=== PATIENT | male | born 1935 | race Caucasian/White ===

== ENCOUNTER 2018-07-28 18:58 | Inpatient (IN) | payer OTHER ==
[~2018-07-28] VITALS: Ht 182.9 cm; Wt 79.4 kg
--- NOTE | 2018-07-28 19:10 | NUR ---
Patient to ER bed 1 to gown for evaluation. Side rails up. Report given to Yves FRANCISCO.
[2018-07-28 19:14] VITALS: BP_SYST 113
--- NOTE | 2018-07-28 19:15 | NUR ---
Patient brought to ED via BLS from [facility]. Patient suffered CVA x 18 days ago. Recent onset of dysphagia x 5 days. Per family, patient has not been tolerating recent PO intake and is losing weight. Patient referred to ED by Dr. Red for medical evaluation and G-tube placement. S/P stroke patient has right sided hemiplegia and expressive aphagia. -CP -SOB -N/V/D. Family at bedside.
[2018-07-28 19:48] LABS: MEAN CORPUSCULAR VOLUME 89 fL (79.0-98.0)
[2018-07-28 19:51] LABS: BASOPHILS % (AUTO) 0.2 % (0.0-2.0); EOSINOPHILS % (AUTO) 0.8 % (0.0-4.0); HEMATOCRIT 39.5 % (36-54); LYMPHOCYTES # (AUTO) 1.1 K/uL (1.0-5.5); MEAN CORPUSCULAR HEMOGLOBIN 29 pg (27-31); MEAN CORPUSCULAR HGB CONC 33 % (32-36); MONOCYTES # (AUTO) 0.6 K/uL (0.0-1.0); MONOCYTES % (AUTO) 9.7 % (1.7-9.3); NEUTROPHILS # (AUTO) 4.4 K/uL (1.8-7.7); NEUTROPHILS % (AUTO) 71.3 % (40.0-70.0); PLATELET COUNT (AUTO) 342 K/uL (130-430); RED BLOOD CELL COUNT(AUTO) 4.45 MIL/uL (4.2-6.2); WHITE BLOOD COUNT (AUTO) 6.1 K/uL (4.8-10.8)
[2018-07-28 19:56] LABS: ANION GAP 11 (5-15); CALCIUM 8.6 mg/dL (8.4-11.0); CHLORIDE 107 mmol/L (98-107); CREATININE 1.42 mg/dL (0.55-1.30); GLUCOSE 114 mg/dL (70-99); POTASSIUM 3.7 mmol/L (3.5-5.1); SODIUM SERUM 141 mmol/L (136-145); UREA NITROGEN, BLOOD 22 mg/dL (8-21)
[2018-07-28] MEDS ORDERED: LIP40 GT (19:57)
[2018-07-28] MEDS ORDERED: BET(AF)80 GT (19:57)
[2018-07-28] MEDS ORDERED: LEVE500T9 GT (19:57)
[2018-07-28] MEDS ORDERED: MELA3TAB PO (19:57)
[2018-07-28] MEDS ORDERED: TAMS-11 GT (19:57)
[2018-07-28] MEDS ORDERED: MERCAP50 GT (19:57)
[2018-07-28] MEDS ORDERED: METO25TA6 GT (19:57)
[2018-07-28] MEDS ORDERED: [UNRECOGNIZED DRUG - CODE] GT (19:57)
[2018-07-28] MEDS ORDERED: HYT1 GT (19:57)
[2018-07-28] MEDS ORDERED: APIX5TAB4 GT (19:57)
[2018-07-28] MEDS ORDERED: PRO40 GT (19:57)
[2018-07-28] MEDS ORDERED: CIPR5DRO LEFT EAR (19:57)
[2018-07-28] MEDS ORDERED: ASPI-1153 GT (19:57)
[2018-07-28] MEDS ORDERED: DRON10CA GT (19:57)
[2018-07-28 20:00] LABS: INR 1.2 (0.80-1.20)
[2018-07-28] MEDS ORDERED: KCL 10 mEq in D5/0.45NS 1000mL 1,000 ML IV ONE (20:00)
[2018-07-28 20:01] LABS: ALANINE AMINOTRANSFERASE 57 U/L (12-78); ALBUMIN 2.3 g/dL (3.4-4.8); ASPARTATE AMINOTRANSFERASE 30 U/L (10-37); TOTAL BILIRUBIN 0.8 mg/dL (0.0-1.0)
[2018-07-28 20:21] LABS: BILIRUBIN,URINE NEGATIVE (NEGATIVE); BLOOD, URINE 2+ (NEGATIVE); CLARITY/URINE CLEAR (CLEAR); COLOR,URINE YELLOW (YELLOW); GLUCOSE,URINE NEGATIVE (NEGATIVE); KETONES,URINE 1+ (NEGATIVE); LEUKOCYTE ESTERASE ,URINE TRACE (NEGATIVE); NITRITE, URINE POSITIVE (NEGATIVE); PH,URINE 5.5 (5.0-8.0); PROTEIN URINE 1+ (NEGATIVE); UROBILINOGEN,URINE 0.2 (0.2-1.0)
[2018-07-28 20:25] LABS: BACTERIA,URINE MODERATE /HPF (None Seen); RBC,URINE 0-3 /HPF (0-3); WBC,URINE 20-50 /HPF (0-3)
--- NOTE | 2018-07-28 20:27 | NUR ---
Medication was given. Pt tolerated well. No adverse reaction, will continue to monitor.
--- NOTE | 2018-07-28 21:11 | NUR ---
Pt went to radiology in stable condition.
--- NOTE | 2018-07-28 21:31 | NUR ---
Pt returned from radiology in stable condition.
--- NOTE | 2018-07-28 21:35 | NUR ---
Jamir Jennings at bedside explaining results to patient.
[2018-07-28] MEDS ORDERED: cefTRIAXone 1 GM IVPB PREMIX 50 ML IV ONE (22:30)
[2018-07-28] MEDS ORDERED: AZITHROMYCIN 500 MG in NS 250 ML IV ONE (22:30)
[2018-07-28] MEDS ORDERED: AZITHROMYCIN 500 MG/VIAL (ZITHROMAX) IV ONE (22:39)
--- NOTE | 2018-07-28 22:45 | NUR ---
Medication was given, pt tolerated well. No adverse reaction, will continue to monitor.
[2018-07-28 23:00] VITALS: BP_SYST 110
[2018-07-28] MEDS: D5NS 1,000 ML IV SCH (23:00)
--- NOTE | 2018-07-28 23:00 | NUR ---
ADMISSION NOTE Received patient from ER via gurney. Patient admitted with diagnosis of UTI,PNA. Patient is awake, alert, oriented X 2. Patient oriented to hospital room, call light, toileting, pain management and safety-teach back done. Patient informed that austen will be his nurse and that their room number is 103a. Personal belongings checked and Belongings List documented. Call light within reach.
--- NOTE | 2018-07-28 23:00 | NUR ---
Patient will be admitted to care of Dr. Bustamante. Admitted to Med Surg unit. Will go to room 103 A. Belongings list completed. Summary report printed. Report will be given at bedside.
--- NOTE | 2018-07-28 23:55 | NUR ---
ADMISSION PHYSICAL ASSESSMENT NOTES; pt. checked, very sleepy but arousable with at bedside. alert, knows his name but disoriented to place and time, at bedside. pt. 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 IV via rt. antecubital with D5 1/2 NS @ 75 cc/hr. kept warm and dry. pt. diagnosis of PNA/UTI. On IV Zithromax started from ER. call light within reach, bed alarm, fall precautions observed.
[2018-07-29] VITALS: BP_SYST 110
--- NOTE | 2018-07-29 00:07 | NUR ---
NOTES: report given by nurse Colon.
--- NOTE | 2018-07-29 01:00 | NUR ---
CONSULT CONSULT CALLED FOR DR. VENTURA I SPOKE WITH LALITHA ENCISO REASON FOR CONSULT: POSSIBLE G-TUBE PLACEMENT REQUESTING CONSULT: DR. HIGH NUMBER I CALLED: [phone]
--- NOTE | 2018-07-29 01:58 | NUR ---
NOTES: pt. awakened and wanting to get out of bed, had a soft bowel movement, benito care done and kept dry, able to help turn to side. at bedside. maintained bed rest.
--- NOTE | 2018-07-29 04:22 | NUR ---
NOTES: pt. been sleeping when made rounds. pt. needs attended.
--- NOTE | 2018-07-29 04:35 | NUR ---
Swallow Eval called for Joanie (speech therapist), dialed . left a message on her voicemail regarding Pt's swallow eval..
--- NOTE | 2018-07-29 06:18 | NUR ---
NOTES: pt. been sleeping but when awakened, starts yelling and tries to get out of bed, gets restless, pt. reassured. speech remains garbled/slurred, drank some water with 's help, HOB elevated. pt. left to go home and will be back later. bed alarm on and close to station. IVF patent, wrapped IV site with kerlix.
--- NOTE | 2018-07-29 06:45 | NUR ---
CLOSING NOTES; pt. more calm, fall precautions observed, bed alarm on, side rails up, seizure pads on, seizure precautions. IVF patent. needs further care and observation. frequent rounds.
--- NOTE | 2018-07-29 07:15 | NUR ---
report given to incoming shift with nurse Catrachita, Dr. Azul here and telling us his plan, asked Catrachita to inform about the plan and let Dr. Azul.
--- NOTE | 2018-07-29 07:58 | NUR ---
opening note pt laying in bed, resting. denies any cp/ sob.no distress noted. call light placed within reach. bed alarm in place with bed in the lowest position. safety maintained.
[2018-07-29 08:00] VITALS: BP_SYST 112
[2018-07-29] MEDS ORDERED: SOTALOL (AF) 80 MG TABLET PO ONE (09:00)
[2018-07-29] MEDS: MESALAMINE 400 MG CAPSULE.DR PO SCH ×3 (10:23→20:09)
[2018-07-29] MEDS: METOPROLOL TARTRATE 25 MG TABLET PO SCH ×2 (10:25→20:08)
[2018-07-29] MEDS: PANTOPRAZOLE SODIUM 40 MG TAB PO SCH (10:26)
--- NOTE | 2018-07-29 10:36 | NUR ---
am meds morning meds given. pt refused taking all medications crushed in apple sauce, became upset, will reattempt. at bedside, safety maintained.
[2018-07-29] MEDS ORDERED: levETIRAcetam 500 MG TABLET PO SCH (11:00)
[2018-07-29] MEDS ORDERED: TAMSULOSIN HCL 0.4 MG CAP PO SCH (11:00)
[2018-07-29] MEDS ORDERED: TERAZOSIN HCL 1 MG CAPSULE (HYTRIN) PO ONE (11:00)
--- NOTE | 2018-07-29 12:00 | NUR ---
PATIENT RESTING: Patient resting quietly. No acute distress noted. Vital signs within normal range.
[2018-07-29 12:06] VITALS: BP_SYST 104
[2018-07-29] MEDS: D5NS 1,000 ML IV SCH (13:27)
[2018-07-29] MEDS ORDERED: levETIRAcetam 500 MG TABLET PO ONE (13:30)
--- NOTE | 2018-07-29 13:30 | NUR ---
PATIENT REFUSING MEDICATION AT THIS TIME.
--- NOTE | 2018-07-29 14:42 | NUR ---
GONZALO SCALE EVALUATION: Patient evaluated for a low Gonzalo score of 13. Patient was awake, alert, oriented, and received in a Karla bed with an IsoFlex LUZ mattress. Patient is able to turn in bed (patient was refusing skin assessment, but his son assisted him to turn for assessment). Skin is fair (+); Buttocks have blanchable erythema from IAD. Recommend reposition patient side to side only every 2 hours with pillow support and off-load pressure areas with pillows for pressure re-distribution. Elevate, off-load and float bilateral heels with pillows. Use moisture barrier cream on buttocks and other moisture susceptible areas QID and as needed for soiling. Perform skin care and monitor skin integrity Q shift. Place patient on a low air-loss mattress.
--- NOTE | 2018-07-29 15:12 | NUR ---
PATIENT REFUSING ALL MEDICATIONS . SAFETY MAINTAINED
--- NOTE | 2018-07-29 15:49 | NUR ---
S.T. SWALLOW EVAL COMPLETED. SON PRESENT. PT PRESENTS W/ ML-MOD ORAL DYSPHAGIA W/ PROLONGED MASTICATION. NO S/S OF ASPIRATION. REC: MECH SOFT FINELY CHOPPED DIET. THIN LIQUIDS OK. MONITOR FOR ADEQUATE INTAKE. SON IN AGREEMENT W/ RESULTS AND RECOMMENDATIONS. NURSE JAMMIE NOTIFIED. [id number] CJ G8997 CJ G8998 NOMS LEVEL 5
[2018-07-29 16:06] VITALS: BP_SYST 102
--- NOTE | 2018-07-29 17:00 | NUR ---
PATIENT RESTING: Patient resting quietly. No acute distress noted. Vital signs within normal range.
[2018-07-29] MEDS: LORazepam 2 MG/ML VIAL IVP PRN ×2 (18:51→19:50)
--- NOTE | 2018-07-29 19:30 | NUR ---
ROUNDS PATIENT IN BED, AWAKE ALERT, CONFUSED, NOT IN DISTRESS, VITALS STABLE. NO SIGNS OF ANY PAIN AND DISCOMFORT NOTED. ASSESSMENT DONE AND DOCUMENTED. SEE FLOWSHEET. NEEDS ATTENDED TO. SAFETY AND FALL PRECAUTION MEASURES IN PLACED. BED IN LOW AND LOCKED POSITION. BED ALARM ON. CALL LIGHT PLACED WITHIN REACH.
--- NOTE | 2018-07-29 19:31 | NUR ---
CLOSING NOTE ALL NEEDS MET THROUGH SHIFT. SAFETY MAINTAINED, CARE ENDORSED TO ROAD MACHINE OPERATOR.
[2018-07-29 19:55] VITALS: BP_SYST 115
[2018-07-29] MEDS: cefTRIAXone 1 GM in D5W 50 ML IV SCH (20:07)
[2018-07-29] MEDS: levETIRAcetam 500 MG TABLET PO SCH (20:08)
[2018-07-29] MEDS: TAMSULOSIN HCL 0.4 MG CAP PO SCH (20:08)
[2018-07-29] MEDS: ATORVASTATIN 20 MG TABLET PO SCH (20:09)
--- NOTE | 2018-07-29 20:22 | NUR ---
PATIENT CONTINUE AGITATED AND CONFUSE TRIED TO GET OUT OFF BED SINCE 1800 THE SON JUST ARRIVED TO VISIT AND HE IS TRIED TO CALM HIM DOWN RN INCHARGED TO THE PATIENT AT THE BED SIDE TO GIVE MEDICATION TO THE PATIENT AND ANSWER SOME QUESTIONS FROM THE SON
--- NOTE | 2018-07-29 20:35 | NUR ---
MEDICATION DUE PO MEDICATIONS GIVEN CRUSHED WITH APPLESAUCE, TOLERATED WELL. WILL CONTINUE TO MONITOR.
[2018-07-29] MEDS: MELATONIN 3 MG PO SCH (21:00)
--- NOTE | 2018-07-29 21:00 | NUR ---
PATIENT FELL ASLEEP AND THE PATIENT SON LEFT TO GO HOMe
[2018-07-29] MEDS: AZITHROMYCIN 500 MG in NS 250 ML IV SCH (21:20)
--- NOTE | 2018-07-30 00:06 | NUR ---
PATIENT RESTING: Patient resting quietly. No acute distress noted. Vital signs within normal range.
[2018-07-30 01:07] VITALS: BP_SYST 110
[2018-07-30] MEDS: LORazepam 2 MG/ML VIAL IVP PRN (02:18)
--- NOTE | 2018-07-30 02:18 | NUR ---
NOTES PATIENT AGITATED AT THIS TIME, ATIVAN 0.5 MG IV GIVEN ORDERED PRN. WILL CONTINUE TO MONITOR.
--- NOTE | 2018-07-30 04:01 | NUR ---
PATIENT RESTING: Patient resting quietly. No acute distress noted. Vital signs within normal range.
[2018-07-30] MEDS: D5NS 1,000 ML IV SCH ×2 (05:49→15:00)
--- NOTE | 2018-07-30 06:42 | NUR ---
CLOSING NOTES PATIENT ASLEEP, VITALS STABLE, NO SIGNS OF AY PAIN AND DISCOMFORT NOTED. ALL NEEDS ATTENDED TO. SAFETY AND FALL PRECAUTION MEASURES MAINTAINED. CALL LIGHT PLACED WITHIN REACH.
--- NOTE | 2018-07-30 07:30 | NUR ---
AM rounds patient resting in bed, a/ox1, denies pain, re-oriented to place, time and event, assessment complete, IV line patent and infusing well, wrapped with george wrap at this time, unable to educate the patient on plan of care and call light system, patient bed in lowest position, three side rails up, bed alarm on, bed close to nursing station, fall and aspiration precautions in place, continuing to monitor.
[2018-07-30 08:33] VITALS: BP_SYST 109
[2018-07-30] MEDS: PANTOPRAZOLE SODIUM 40 MG TAB PO SCH ×3 (09:00→10:04)
[2018-07-30] MEDS: TERAZOSIN HCL 1 MG CAPSULE (HYTRIN) PO SCH ×3 (09:00→10:04)
[2018-07-30] MEDS: levETIRAcetam 500 MG TABLET PO SCH ×4 (09:00→21:00)
[2018-07-30] MEDS: MESALAMINE 400 MG CAPSULE.DR PO SCH ×5 (09:00→21:00)
[2018-07-30] MEDS: SOTALOL 80 MG PO SCH ×2 (09:00→09:25)
[2018-07-30] MEDS ORDERED: SOTALOL (AF) 80 MG TABLET PO SCH (09:00)
[2018-07-30] MEDS: METOPROLOL TARTRATE 25 MG TABLET PO SCH ×4 (09:00→21:00)
--- NOTE | 2018-07-30 09:49 | NUR ---
Nutrition Update Gonzalo Scale 15 noted. Pt admitted for pneumonia and UTI. Diet: mechanical soft BMI: 23.7 kg/m2 RD to follow per nutrition care standards.
--- NOTE | 2018-07-30 10:12 | NUR ---
Medications patient resting in bed, initially medications were scanned and crushed but patient spit medication out, medications were wasted and pulled again, second time, patient was too lethargic too take medications, medications were scanned and placed in patient medication drawer, patient family member aware that medications were not yet given, continuing to monitor the patient, family also request Ativan to not be given to the patient.
--- NOTE | 2018-07-30 11:11 | NUR ---
FOLLOW UP Person Who was Notified: SPOKE WITH DION FROM DR. HOFFMAN OFFICE Consulting Physician: Expediter Specialty: PSYCH Ordering Physician: Addendum: 07/30/18 at 1115 by Mariposa Zhu CNA CONSULT
[2018-07-30 11:47] VITALS: BP_SYST 111
--- NOTE | 2018-07-30 12:02 | NUR ---
RN rounds/medication patient resting in bed, eyes closed, breathing is even and unlabored, no signs of distress, easy to wake but patient returns to sleeping quickly, family at bedside, family insisting to try to give the patient AM medications with lunch, will attempt, no other needs at this time, bed in lowest position, three side rails up, bed alarm on, bed close to nursing station, fall and aspiration precautions in place.
--- NOTE | 2018-07-30 12:30 | NUR ---
Cannot give medication patient is very lethargic and unable to take medications, will inform MD.
--- NOTE | 2018-07-30 14:15 | NUR ---
Dr. Kapadia rounds speaking with family at bedside.
--- NOTE | 2018-07-30 14:35 | NUR ---
Dr. Azul rounds speaking with family at bedside.
--- NOTE | 2018-07-30 15:30 | NUR ---
Dietitian Recommendations * Recommend mechanical soft diet, Ensure Enlive BID (oral supplement provides an additional 700 kcal/day and 40 gm protein/day) LP, RD Please refer to Nutrition Assessment for details.
[2018-07-30 16:04] VITALS: BP_SYST 113
--- NOTE | 2018-07-30 16:22 | NUR ---
RN rounds family at bedside, answered their questions, family requesting no Ativan and for sleeping pill instead, patient resting in bed, eyes closed, breathing is even and unlabored, no signs of distress, continuing to monitor, IV line is patent and infusing well, no other needs at this time, bed in lowest position, three side rails up, bed alarm on, bed close to nursing station, fall and aspiration precautions in place.
--- NOTE | 2018-07-30 18:24 | NUR ---
Closing note Patient resting in bed, eyes closed, breathing is even and unlabored, no signs of distress, family at bedside, all needs met, will endorse report to NOC shift nurse, bed in lowest position, three side rails up, bed alarm on, bed close to nursing station, fall and aspiration precautions in place, IV line is patent and infusing well. Spoke with Dr. Kapadia, stated to DC Ativan and he will not order a sleeping pill as it will have the same effect as the Ativan.
[2018-07-30 19:15] VITALS: BP_SYST 104
--- NOTE | 2018-07-30 19:20 | NUR ---
Opening Note Bedside SBAR report received from Randal you RN Patient is resting, eyes closed with his daughter bedside. 104/68 84 15 97.9 97% (room air) with no signs of pain/discomfort at this time. IV site noted to RH 22G currently infusing D51/2NS @ 75ml/hr. No signs of redness or infiltration. Bed to lowest position, 3 side rails raised, call light within reach, bed alarm activated. Will continue to monitor patient.
[2018-07-30] MEDS: TAMSULOSIN HCL 0.4 MG CAP PO SCH (21:00)
[2018-07-30] MEDS: MELATONIN 3 MG PO SCH (21:00)
[2018-07-30] MEDS: ATORVASTATIN 20 MG TABLET PO SCH (21:00)
--- NOTE | 2018-07-30 21:34 | NUR ---
Patient is unable to safely take medications.
[2018-07-30] MEDS: AZITHROMYCIN 500 MG in NS 250 ML IV SCH (22:47)
[2018-07-30] MEDS: cefTRIAXone 1 GM in D5W 50 ML IV SCH (22:47)
--- NOTE | 2018-07-30 23:21 | NUR ---
Rounds Patient is resting comfortably, eyes closed but easily arouses to light stimulation. IV site is clean/dry/intact with no signs of infiltration. Bed to lowest position, 3 side rails raised, call light within reach, bed alarm activated. Will continue to monitor patient.
[2018-07-31] VITALS: BP_SYST 121
--- NOTE | 2018-07-31 00:03 | NUR ---
Patient attempting to get out of bed. FIELD GEOLOGIST is bedside to reposition patient.
--- NOTE | 2018-07-31 02:03 | NUR ---
Rounds Patient is resting comfortably, eyes closed but easily arouses to light stimulation. No shortness of breath, no labored breathing. IV site is clean/dry/intact with no signs of infiltration. Bed to lowest position, 3 side rails raised, call light within reach, bed alarm activated. Will continue to monitor patient.
--- NOTE | 2018-07-31 03:58 | NUR ---
Rounds Patient is still resting comfortably, eyes closed with no distress noted. Respirations are equal/non-labored @ 16/min. IV site is clean/dry/intact and infusing D5 1/2 NS @ 75ml/hr. No redness or infiltration noted. Bed to lowest position, 3 side rails raised, call light within reach, bed alarm activated. Will continue to monitor patient.
[2018-07-31] MEDS: D5NS 1,000 ML IV SCH ×2 (06:01→17:43)
[2018-07-31] MEDS ORDERED: CEFAZOLIN 1 GM IVPB PREMIX 50 ML IV ONE (06:30)
--- NOTE | 2018-07-31 06:50 | NUR ---
GI has arrived to take patient for PEG procedure. SBAR report and wolf pass filled out.
[2018-07-31] MEDS: MEPERIDINE HCL/PF 100 MG/ML AMP ONE ×4 (07:02→07:10)
[2018-07-31] MEDS: MIDAZOLAM HCL 5 MG/5 ML VIAL ONE ×3 (07:02→07:06)
[2018-07-31 07:03] LABS: INR 1.2 (0.80-1.20); PROTHROMBIN TIME 11.9 SECS (9.5-12.5)
--- NOTE | 2018-07-31 07:10 | NUR ---
Closing Notes SBAR report given to dayshift RN Joycelyn All needs/expectations/interventions met by nightshift RN. Transfer of care successful.
--- NOTE | 2018-07-31 07:54 | NUR ---
ON UNIT PATIENT RETURNED BACK TO UNIT. REPORT RECEIVED FROM IBAN MCCLELLAN RN AND PATIENT RECEIVED AN EGD WITH PEG PLACEMENT DONT BY . PATIENT ON O2@2L/M VIA NC, SILVINO WELL. NO ACUTE DISTRESS. NO SOB. RESPIRATION EVEN AND UNLABORED. PEG TUBE IN PLACE WITH NO RESIDUAL NOTED. ABDOMINAL BINDER IN PLACE. SKIN WARM AND DRY TO TOUCH. IV INTACT AND PATENT WITH NO S/SX INFECTION/INFILTRATION NOTED. BED IN LOW AND LOCKED POSITION. PADDED SIDERAIL UP X2. BED ALARM ON. ROOM NEAR NURSES STATION. CALL LIGHT IN REACH. CONT TO MONITOR WITH FREQUENT VISUAL CHECK. AT BEDSIDE.
[2018-07-31 08:00] VITALS: BP_SYST 106
[2018-07-31] MEDS: SOTALOL 80 MG PO SCH (09:00)
--- NOTE | 2018-07-31 09:45 | NUR ---
NOTES PATIENT WOKE UP TO USE URINAL; SILVINO WELL WITH VOID OF 100 CC OF YELLOW URINE. ALL NEEDS MET. CALL LIGHT IN REACH. CONT TO MONITOR.
--- NOTE | 2018-07-31 10:00 | NUR ---
NOTES PATIENT RESTING IN BED, EASILY AROUSABLE. VITAL SIGN STABLE. TAPERING OXYGEN TO O2@1L/M, SILVINO WELL. NO ACUTE DISTRESS. NO SOB. RESPIRATION EVEN AND UNLABORED. SKIN WARM AND DRY TO TOUCH. IV INTACT AND PATENT. SILVINO IVF ORDERED. ALL NEEDS MET. CALL LIGHT IN REACH. CONT TO MONITOR
[2018-07-31] MEDS: levETIRAcetam 500 MG TABLET PO SCH ×2 (10:20→21:28)
[2018-07-31] MEDS: TERAZOSIN HCL 1 MG CAPSULE (HYTRIN) PO SCH (10:20)
[2018-07-31] MEDS: PANTOPRAZOLE SODIUM 40 MG TAB PO SCH (10:20)
[2018-07-31] MEDS: MESALAMINE 400 MG CAPSULE.DR PO SCH ×3 (10:20→21:28)
[2018-07-31] MEDS: METOPROLOL TARTRATE 25 MG TABLET PO SCH ×2 (10:23→21:31)
--- NOTE | 2018-07-31 10:30 | NUR ---
SPOKE TO TO CLARIFY GTUBE FEEDING AND DIET ORDERS. STATED TO CONT ORDERS HE ORDERED AND TO START AT DINNER TIME FOR BOTH GTF AND DIET DUE TO PEG SITE HAS TO HEAL A LITTLE BEFORE STARTING.
[2018-07-31 12:25] VITALS: BP_SYST 121
--- NOTE | 2018-07-31 12:45 | NUR ---
SEEN AND EXAMINED BY AT BEDSIDE. PATIENT IS MORE AWAKE AND NOTED WITH SOME PAIN. MD WILL ORDER PAIN MEDICATION
[2018-07-31] MEDS: MORPHINE 2 MG/ML INJ. SYRINGE IVP PRN ×2 (13:17→19:56)
--- NOTE | 2018-07-31 13:17 | NUR ---
PAIN PATIENT C/O PAIN TO PEG TUBE SITE; PAIN MEDICATION ADMINISTERED ORDERED, SILVINO WELL. VITAL SIGN STABLE. SKIN WARM AND DRY TO TOUCH. ALL NEEDS MET. CONT TO MONITOR. CALL LIGHT IN REACH. FRIEND SITTING AT BEDSIDE.
--- NOTE | 2018-07-31 15:30 | NUR ---
NOTES PEG TUBE IN PLACE WITH NO RESIDUAL NOTED. ADMINISTERED MEDS ORDERED, SILVINO WELL. HOB>30. REPOSITIONED FOR COMFORT. SON AND DAUGHTER AT BEDSIDE. ALL NEEDS MET. CALL LIGHT IN REACH. CONT TO MONITOR WITH FREQUENT VISUAL CHECK. ROOM NEAR NURSES STATION.
[2018-07-31 16:25] VITALS: BP_SYST 129
--- NOTE | 2018-07-31 17:50 | NUR ---
NOTES PATIENT EASILY AROUSABLE. VITAL SIGN STABLE. NO S/SX PAIN AT THIS TIME. HOB>30. ADMINISTERED JEVITY1.2 BOLUS ORDERED, SILVINO WELL. PATIENT HAD NO RESIDUAL. SILVINO GTF WITH NO NAUSEA/VOMITING NOTED. ALL NEEDS MET. CALL LIGHT IN REACH. CONT TO MONITOR. DAUGHTER AT BEDSIDE.
--- NOTE | 2018-07-31 18:30 | NUR ---
CLOSING NOTE PATIENT SITTING UP IN BED AWAKE. HOB >30. NO S/SX DISCOMFORT NOTED. ROOM AIR. NO ACUTE DISTRESS. NO SOB. RESPIRATION EVEN AND UNLABORED. SKIN WARM AND DRY TO TOUCH. IV INTACT AND PATENT. SILVINO IV FLUID ORDERED. PEG TUBE INTACT AND PATENT WITH NO RESIDUAL. ABDOMINAL BINDER IN PLACE, SILVINO WELL. HOB UP. ALL NEEDS MET. CALL LIGHT IN REACH. CONT TO MONITOR. ROOM NEAR NURSES STATION. WILL ENDORSE TO ONCOMING SHIFT. DAUGHTER JUST LEFT.
--- NOTE | 2018-07-31 19:10 | NUR ---
Opening Note Bedside SBAR report received from Joycelyn you RN Patient is resting, eyes closed with no acute distress noted 126/52 115 18 97.8 91% (room air) with no signs of pain/discomfort at this time. IV site noted to LAC 20G currently infusing D5NS @ 75ml/hr. No signs of redness or infiltration. Bed to lowest position, 3 side rails raised, call light within reach, bed alarm activated. Will continue to monitor patient.
[2018-07-31 19:15] VITALS: BP_SYST 126
--- NOTE | 2018-07-31 19:56 | NUR ---
Pain Medication Patient complains of 8/10 abdominal pain. Administered Morphine 1mg as ordered for severe pain. Will follow up to ensure effective pain management. 129/64 109 17 95% (2L)
[2018-07-31] MEDS: MELATONIN 3 MG PO SCH (21:00)
[2018-07-31] MEDS: cefTRIAXone 1 GM in D5W 50 ML IV SCH (21:04)
--- NOTE | 2018-07-31 21:10 | NUR ---
Received call from Karen (patient's daughter) she would like a status update. Provided and answered all questions. Informed her she may call at anytime for update. She says if anything happens it's better to call her brother first (# on board in room) because he lives much closer. Will endorse to avelino RN.
[2018-07-31] MEDS: AZITHROMYCIN 500 MG in NS 250 ML IV SCH (21:28)
[2018-07-31] MEDS: TAMSULOSIN HCL 0.4 MG CAP PO SCH (21:28)
[2018-07-31] MEDS: ATORVASTATIN 20 MG TABLET PO SCH (21:28)
--- NOTE | 2018-07-31 21:58 | NUR ---
Rounds Patient is still resting, eyes closed with no acute distress noted. No SOB, no wheezing, no labored breathing noted at this time. IV site is clean/dry/intact with no signs of infiltration. Bed to lowest position, 3 side rails raised, call light within reach, bed alarm activated. Will continue to monitor patient.
--- NOTE | 2018-07-31 23:59 | NUR ---
Rounds Patient is still resting comfortably, eyes closed with no distress noted. Respirations are equal/non-labored @ 17/min. IV site is clean/dry/intact and infusing D5NS @ 75ml/hr. No redness or signs of infiltration noted. Bed to lowest position, 3 side rails raised, call light within reach, bed alarm activated. Will continue to monitor patient.
[2018-08-01] VITALS (7 sets, daily range): BP systolic 99–142
--- NOTE | 2018-08-01 00:05 | NUR ---
Free water flush 100ml as ordered (0 residual)
[2018-08-01] MEDS: MORPHINE 2 MG/ML INJ. SYRINGE IVP PRN ×2 (01:39→16:12)
--- NOTE | 2018-08-01 01:39 | NUR ---
Pain Medication Patient complains of 10/10 abdominal pain. Administered Morphine 1mg as ordered for severe pain. Will follow up to ensure effective pain management. 124/79 112 17 93% (2L)
--- NOTE | 2018-08-01 04:45 | NUR ---
Rounds Patient is awake and asking for something to drink; water provided. He does not complain of pain at this time. He does not need anything else at this time. IV site is clean/dry/intact with no signs of infiltration. Bed to lowest position, 3 side rails raised, call light within reach, bed alarm activated. Will continue to monitor patient.
--- NOTE | 2018-08-01 06:00 | NUR ---
Free water flush 100ml as ordered (0 residual)
[2018-08-01 06:58] LABS: BASOPHILS % (AUTO) 0.4 % (0.0-2.0); EOSINOPHILS % (AUTO) 0.8 % (0.0-4.0); HEMATOCRIT 39.2 % (36-54); HEMOGLOBIN 12.9 g/dL (14.0-18.0); LYMPHOCYTES # (AUTO) 1.1 K/uL (1.0-5.5); LYMPHOCYTES % (AUTO) 18.3 % (20.5-51.5); MEAN CORPUSCULAR HEMOGLOBIN 29 pg (27-31); MEAN CORPUSCULAR HGB CONC 33 % (32-36); MEAN CORPUSCULAR VOLUME 88 fL (79.0-98.0); MONOCYTES # (AUTO) 0.5 K/uL (0.0-1.0); MONOCYTES % (AUTO) 8.1 % (1.7-9.3); NEUTROPHILS # (AUTO) 4.6 K/uL (1.8-7.7); NEUTROPHILS % (AUTO) 72.4 % (40.0-70.0); PLATELET COUNT (AUTO) 249 K/uL (130-430); RED BLOOD CELL COUNT(AUTO) 4.48 MIL/uL (4.2-6.2); RED CELL DISTRIBUTION WIDTH 16.1 % (9.0-15.0); WHITE BLOOD COUNT (AUTO) 6.2 K/uL (4.8-10.8)
[2018-08-01 07:47] LABS: CHLORIDE 105 mmol/L (98-107)
--- NOTE | 2018-08-01 07:55 | NUR ---
OPENING NOTES, RECEIVED PT IN BED, UNABLE TO DETERMINE ORIENTATION. PT HAS SLURRED SPEECH , BUT ABLE TO GESTURE HIS NEEDS FOR URINAL AND PAIN MEDICATION. , PT HERE AT BEDSIDE. SAFETY PRECAUTION KEPT IN PLACE. BED ALARM ON . BED IN LOW POSITION. ABDOMINAL BINDER ON TO PREVENT PT FROM ACCIDENTALLY PULLING HIS NEWLY IN PLACE G-TUBE. WILL CONT TO MONITOR.
[2018-08-01 08:08] LABS: ANION GAP 10 (5-15); CREATININE 1.34 mg/dL (0.55-1.30); GLUCOSE 209 mg/dL (70-99); SODIUM SERUM 139 mmol/L (136-145); UREA NITROGEN, BLOOD 10 mg/dL (8-21)
[2018-08-01 08:15] LABS: POTASSIUM 2.9 mmol/L (3.5-5.1)
[2018-08-01] MEDS: PANTOPRAZOLE SODIUM 40 MG TAB PO SCH (08:46)
[2018-08-01] MEDS: levETIRAcetam 500 MG TABLET PO SCH (08:46)
[2018-08-01] MEDS: TERAZOSIN HCL 1 MG CAPSULE (HYTRIN) PO SCH (08:47)
[2018-08-01] MEDS: MESALAMINE 400 MG CAPSULE.DR PO SCH ×2 (08:49→14:12)
[2018-08-01] MEDS: METOPROLOL TARTRATE 25 MG TABLET PO SCH (08:49)
[2018-08-01] MEDS: D5NS 1,000 ML IV SCH (08:50)
[2018-08-01] MEDS: SOTALOL 80 MG PO SCH (08:51)
--- NOTE | 2018-08-01 09:08 | NUR ---
AM MEDS GIVEN. FAMILY AT BEDSIDE.
--- NOTE | 2018-08-01 10:00 | NUR ---
PT TURNED AND REPOSITIONED. FAMILY AT BEDSIDE. SAFETY PRECAUTION IN PLACE.
--- NOTE | 2018-08-01 11:00 | NUR ---
PT GIVEN TUBE FEEDING BOLUS OF JEVITY 240 ML. PT'S SON AT BEDSIDE. NO RESIDUAL NOTED. PT TOLERATED WELL.
[2018-08-01] MEDS ORDERED: POTASSIUM CHLORIDE 20 MEQ TAB.PRT.SR PO ONE (12:15)
--- NOTE | 2018-08-01 12:47 | NUR ---
KCL GIVEN VIA G-TUBE.
--- NOTE | 2018-08-01 15:22 | NUR ---
PT IN BED, AWAKE AT THIS TIME. FAMILY AT BEDSIDE. WAITING FOR DC TECHNICAL TRAINING SPECIALIST/X RAY SERVICE ENGINEER TO FINALIZE DC TO [place].
--- NOTE | 2018-08-01 15:30 | NUR ---
PT GIVEN BOLUS FEEDING OF JEVITY 1.2, WITH 30 CC OF WATER FLUSH.
[2018-08-01] MEDS ORDERED: ALPR0.5T GT (15:53)
[2018-08-01] MEDS ORDERED: LEVO250T2 GT (15:54)
--- NOTE | 2018-08-01 16:12 | NUR ---
PT GIVEN PAIN MED MS 1 MG FOR PAIN. PT SUDDENLY WAS PULLING ON HIS G-TUBE/ VITALS WERE 127/65 HR 118, O2 SAT 92% ON ROOM AIR. FAMILY AT BEDSIDE.
--- NOTE | 2018-08-01 17:00 | NUR ---
GIVEN REPORT TO JONELLE CALDERON THURMONDRICKY.
--- NOTE | 2018-08-01 17:55 | NUR ---
DISCHARGED TO [facility]. PT DISCHARGED TO [facility] RM 143, PT SON AND DAUGHTER AWARE OF THE TRANSFER. PT LEFT WITH AN INTACT G-TUBE. IV ACCESS REMOVED AND ID BAND REMOVED. REPORT GIVEN TO NURSE SAL . INFORM OF THE NEW G-TUBE ANTIBIOTICS AND XANAX ORDER. PT UNABLE TO SIGH DC INSTRUCTION. ALL BELONGINGS DISCHARGE WITH PT. DC PACKET SENT WITH PT.
--- NOTE | 2018-08-02 10:02 | NUR ---
DCP faxed order to [facility], [place] (f [phone] p [phone]).
== END 2018-08-01 17:54 | DRG 689 ==
LOC: SED 18:58 → SMU 22:52
PROVIDERS: ADMIT Internal Medicine; ATTEND Internal Medicine
PROC: 0DH63UZ Insertion of Feeding Device into Stomach, Percutaneous Approach (ICD-10-PCS; principal; 2018-07-31 07:00)
DX: N12 Tubulo-interstitial nephritis, not specified as acute or chronic (principal); E43 Unspecified severe protein-calorie malnutrition; R13.10 Dysphagia, unspecified; G40.909 Epilepsy, unspecified, not intractable, without status epilepticus; I48.2 Chronic atrial fibrillation; I12.9 Hypertensive chronic kidney disease with stage 1 through stage 4 chronic kidney disease, or unspecified chronic kidney disease; N18.9 Chronic kidney disease, unspecified; Z95.1 Presence of aortocoronary bypass graft; Z87.891 Personal history of nicotine dependence; Z88.8 Allergy status to other drugs, medicaments and biological substances; Z79.899 Other long term (current) drug therapy; Z79.82 Long term (current) use of aspirin; Z90.49 Acquired absence of other specified parts of digestive tract; I69.391 Dysphagia following cerebral infarction; I69.322 Dysarthria following cerebral infarction; Z68.23 Body mass index [BMI] 23.0-23.9, adult
CPT/HCPCS: 36415; 43246; 71045; 80048; 80053; 81000-TC; 83605; 83690-TC; 83735-TC; 83880; 84100-TC; 84484; 85025; 85610-TC; 85730-TC; 87040-TC; 87081; 87086; 87186-TC; 92610-GN; 93005; 96365; 96367; 99285; J0456; J0690; J0696; J2060; J2175; J2250; J2270; J7042; J7050; J7060

== ENCOUNTER 2018-08-02 16:44 | Inpatient (IN) | payer OTHER ==
[~2018-08-02] VITALS: Ht 180.3 cm; Wt 79.8 kg
[~2018-08-02 16:44] MED LIST: ALPR0.5T GT; APIX5TAB4 GT; ASPI-1153 GT; BET(AF)80 GT; CIPR5DRO LEFT EAR; DRON10CA GT; HYT1 GT; LEVE500T9 GT; LEVO250T2 GT; LIP40 GT; MELA3TAB PO; MERCAP50 GT; METO25TA6 GT; PRO40 GT; TAMS-11 GT; [UNRECOGNIZED DRUG - CODE] GT
[2018-08-02 16:45] VITALS: BP_SYST 161
--- NOTE | 2018-08-02 16:45 | NUR ---
Placed in room 1 . Placed on cardiac monitor technician, blood pressure machine and pulse oximeter. To gown for exam. Side rails up.
--- NOTE | 2018-08-02 16:45 | NUR ---
BROUGHT IN BY [facility], PLACED IN BED #1 AND TRIAGED. REPORT GIVEN TO ALLYSSA
--- NOTE | 2018-08-02 16:50 | NUR ---
ER at bedside examining patient.
--- NOTE | 2018-08-02 16:55 | NUR ---
Pt presents to ER brought in from [place], for sob. Pt had g-tube inserted last Thursday, after insertion staff noticed pt started wheezing and grown increasingly short of breath. Pt is awake but unresponsive to questions asked, often trying to pull out iv lines and cords. Pt placed on 2L nasal canula. Family at bedside.
--- NOTE | 2018-08-02 17:05 | NUR ---
Medication reconciliation completed with information provided by REN. Any prior medication reconciliation on file was reviewed and corrected.
[2018-08-02 17:12] LABS: BASOPHILS # (AUTO) 0.1 K/uL (0.0-0.2); BASOPHILS % (AUTO) 0.5 % (0.0-2.0); EOSINOPHILS # (AUTO) 0.1 K/uL (0.0-0.4); EOSINOPHILS % (AUTO) 0.4 % (0.0-4.0); HEMATOCRIT 41.7 % (36-54); HEMOGLOBIN 13.3 g/dL (14.0-18.0); LYMPHOCYTES # (AUTO) 0.6 K/uL (1.0-5.5); LYMPHOCYTES % (AUTO) 4.2 % (20.5-51.5); MEAN CORPUSCULAR HEMOGLOBIN 28 pg (27-31); MEAN CORPUSCULAR HGB CONC 32 % (32-36); MEAN CORPUSCULAR VOLUME 88 fL (79.0-98.0); MONOCYTES # (AUTO) 0.3 K/uL (0.0-1.0); MONOCYTES % (AUTO) 1.9 % (1.7-9.3); NEUTROPHILS # (AUTO) 14.1 K/uL (1.8-7.7); PLATELET COUNT (AUTO) 246 K/uL (130-430); RED BLOOD CELL COUNT(AUTO) 4.76 MIL/uL (4.2-6.2); RED CELL DISTRIBUTION WIDTH 16.2 % (9.0-15.0); WHITE BLOOD COUNT (AUTO) 15.2 K/uL (4.8-10.8)
[2018-08-02] MEDS ORDERED: IPRATROPIUM BROM 0.5 MG/2.5 ML VIAL.NEB (ATROVENT) INH ONE ×2 (17:15→20:00)
[2018-08-02] MEDS ORDERED: ALBUTEROL SULFATE 0.083% 2.5 MG/3 ML VIAL.NEB INH ONE ×2 (17:15→20:00)
--- NOTE | 2018-08-02 17:19 | NUR ---
Respiratory at bedside for breathing treatment
[2018-08-02 17:25] LABS: ANION GAP 4 (5-15); CALCIUM 8.8 mg/dL (8.4-11.0); CHLORIDE 105 mmol/L (98-107); CREATININE 1.25 mg/dL (0.55-1.30); GLUCOSE 114 mg/dL (70-99); SODIUM SERUM 138 mmol/L (136-145); UREA NITROGEN, BLOOD 16 mg/dL (8-21)
[2018-08-02 17:29] LABS: INR 1.3 (0.80-1.20); PROTHROMBIN TIME 13.2 SECS (9.5-12.5)
[2018-08-02 17:39] LABS: ALANINE AMINOTRANSFERASE 55 U/L (12-78); ALBUMIN 2.2 g/dL (3.4-4.8); ASPARTATE AMINOTRANSFERASE 41 U/L (10-37); TOTAL BILIRUBIN 0.6 mg/dL (0.0-1.0)
--- NOTE | 2018-08-02 17:54 | NUR ---
Dr. Gallardo at bedside speaking with pt's family.
[2018-08-02] MEDS ORDERED: DILTIAZEM HCL 25 MG/5 ML VIAL IVP ONE (18:00)
--- NOTE | 2018-08-02 18:29 | NUR ---
Cardizem 10mg IVP administered to pt as ordered by ER Dr. Gallardo. Pt tolerated well; will continue to monitor.
[2018-08-02] MEDS ORDERED: VANCOMYCIN HCL 1,000 MG in NS 250 ML IV ONE (18:45)
[2018-08-02] MEDS ORDERED: PIPERACILLIN/TAZO 3.375 GM in NS 50 ML IV ONE (18:45)
[2018-08-02] MEDS ORDERED: DILTIAZEM HCL 120 MG CAP.SR.24H PO ONE (19:00)
--- NOTE | 2018-08-02 19:00 | NUR ---
Dr. Gallardo aware of pt's condition. Dr. Gallardo consulted about starting IV fluids but states that he does not want to give IVF at the moment.
[2018-08-02] MEDS ORDERED: VANCOMYCIN HCL 1000 MG/VIAL IV ONE (19:04)
[2018-08-02] MEDS ORDERED: PIPERACILLIN/TAZOBACTAM 3.375 GM/VIAL (ZOSYN) IV ONE (19:04)
[2018-08-02] MEDS ORDERED: ALBUTEROL SULFATE 0.083% 2.5 MG/3 ML VIAL.NEB INH PRN (19:30)
[2018-08-02] MEDS ORDERED: IPRATROPIUM BROM 0.5 MG/2.5 ML VIAL.NEB (ATROVENT) INH PRN (19:30)
--- NOTE | 2018-08-02 19:30 | NUR ---
Patient not known to be of DNR status. As ordered by ER Dr. Gallardo, Patient medicated with Vecuronium 10 mg for sedation prior to placement of ET tube. Respiratory therapy at bedside prior to placement. Size 7.5 ET tube placed by Dr. Gallardo. Cuff inflated with 10 cc air. Auscultation of breath sounds over bilateral chest wall. ET tube secured. O2 sats 99% pulse ox. PCXR ordered to check tube placement.
[2018-08-02] MEDS ORDERED: VECURONIUM BROMIDE 10 MG/VIAL (NORCURON) ONE (19:36)
[2018-08-02] MEDS ORDERED: fentaNYL CITRATE/PF 100 MCG/2 ML AMP IVP ONE (19:45)
--- NOTE | 2018-08-02 19:50 | NUR ---
ER Dr. Gallardo discussed comfort measures with pt's family.
[2018-08-02 20:00] VITALS: BP_SYST 146
[2018-08-02] MEDS ORDERED: PIPERACILLIN/TAZO 3.375/DEX-IS 50 ML IV ONE (20:00)
--- NOTE | 2018-08-02 20:00 | NUR ---
Patient will be admitted to care of Dr. Kapadia. Admitted to ICU unit. Will go to room 5. Belongings list completed. Summary report printed. Report will be given at bedside. Transfer to ICU. IV present no sign or symptom of infiltration.
--- NOTE | 2018-08-02 20:00 | NUR ---
RECEIVED FROM ER DEPT VIA AARON AN 82 YO WHITE MALE WITH DIAGNOSIS OF ASPIRATION PNEUMONIA. ORALLY INTUBATED. GT CLAMPED. ABDOMINAL BINDER IN PLACE. ETT IN PROPER POSITION PER DR SOW, ER MD. FAMILY AT BEDSIDE, ANSWERING ADMISSION ASSESSMENT QUESTIONS.
[2018-08-02] MEDS ORDERED: ACETAMINOPHEN 650 MG/20.3 ML UDC GT PRN (20:30)
[2018-08-02] MEDS ORDERED: SOTALOL (AF) 80 MG TABLET GT ONE (20:45)
[2018-08-02 20:53] VITALS: BP_SYST 110
[2018-08-02 21:00] VITALS: BP_SYST 117
--- NOTE | 2018-08-02 21:00 | NUR ---
SUCTIONED ETT WITH SMALL AMOUNT OF THIN CLEAR MUCUS OBTAINED. DR ARCE NOTIFIED OF ABG RESULTS, ORDERED VENT SETTING CHANGES TO AC16, FIO2 60 %, VT550, PEEP5, CARRIED OUT. RESTLESS, ORDERE FOR RESTRAINTS OBTAINED AND APPLIED. TYLENOL GR 10 GT GIVEN FOR ORAL TEMP 103.2.
[2018-08-02] MEDS: D5NS 1,000 ML IV SCH (21:06)
[2018-08-02] MEDS: METOPROLOL TARTRATE 25 MG TABLET GT SCH (21:22)
[2018-08-02] MEDS: ATORVASTATIN 20 MG TABLET GT SCH (21:22)
[2018-08-02] MEDS: LEVOFLOXACIN 500 MG/D5W 100 ML IV SCH (21:26)
[2018-08-02] MEDS: APIXABAN 2.5 MG TABLET GT SCH (21:29)
[2018-08-02] MEDS: LevETIRAcetam 100 MG/ML UDC ORAL LIQUID GT SCH (21:30)
[2018-08-02] MEDS: LORazepam 2 MG/ML VIAL IVP PRN (21:36)
[2018-08-02 22:00] VITALS: BP_SYST 82
--- NOTE | 2018-08-02 22:00 | NUR ---
GALARZA CATH INSERTED EARLIER, UA SENT. SUCTIONED AGAIN. Addendum: 08/03/18 at 0320 by Navi Arizmendi RN CATHETERIZED WITH PERSIAN #16 GALARZA CATHETER USING ASEPTIC TECHNIQUE, WITH ABOUT 20CC CLEAR DARK YELLOW URINE OBTAINED. GALARZA CATHETER SECURED IN PLACE WITH SECUREMENT DEVICE.
[2018-08-02 22:29] LABS: BILIRUBIN,URINE NEGATIVE (NEGATIVE); BLOOD, URINE 1+ (NEGATIVE); CLARITY/URINE SL CLOUDY (CLEAR); COLOR,URINE YELLOW (YELLOW); GLUCOSE,URINE NEGATIVE (NEGATIVE); KETONES,URINE NEGATIVE (NEGATIVE); LEUKOCYTE ESTERASE ,URINE NEGATIVE (NEGATIVE); NITRITE, URINE NEGATIVE (NEGATIVE); PH,URINE 5.5 (5.0-8.0); PROTEIN URINE 2+ (NEGATIVE)
--- NOTE | 2018-08-02 22:30 | NUR ---
DR ARCE UPDATED ON STATUS. NOTIFIED OF VSS AND LOW BP OF 82/45. ORDERED TO GIVE 250CCNS BOLUS, AND MAY START LEVOPHED TO KEEP MAP>65. TEMP 101.4, ORALLY.
--- NOTE | 2018-08-02 22:50 | NUR ---
LEFT HAND SALINE LOCK #20 INSERTED.
--- NOTE | 2018-08-02 22:50 | NUR ---
2nd iv line started with # 20 g iv catheter on lt hand with one attempt.
[2018-08-02 23:00] VITALS: BP_SYST 67
[2018-08-02] MEDS ORDERED: NS 250 ML IV ONE (23:00)
--- NOTE | 2018-08-02 23:00 | NUR ---
LEVOPHED STARTED AT 5MCG/MIN.
[2018-08-02] MEDS ORDERED: NOREPINEPHRINE 4 MG/4 ML VIAL IV ONE (23:08)
[2018-08-02] MEDS: NOREPINEPHRINE BITARTRATE 4 MG in D5W 246 ML IV PRN (23:09)
--- NOTE | 2018-08-02 23:20 | NUR ---
BP REMAINS IN THE 80'S. LEVOPHED TITRATED TO 7 MCG/MIN.
[2018-08-02 23:37] LABS: BACTERIA,URINE MODERATE /HPF (None Seen)
[2018-08-02 23:38] LABS: COARSE GRANULAR CASTS,URINE 0-10 /LPF (None Seen); MUCUS,URINE None Seen /LPF (None Seen); URINE AMORPHOUS URATE 3+ /HPF (None Seen)
--- NOTE | 2018-08-02 23:40 | NUR ---
FIO2 TITRATED DOWN TO 50% BY RT PER PARAMETERS GIVEN.
[2018-08-02] MEDS: PIPERACILLIN/TAZO 3.375/DEX-IS 50 ML IV SCH (23:53)
[2018-08-03] VITALS (29 sets, daily range): BP systolic 93–130
--- NOTE | 2018-08-03 | NUR ---
BOUTS OF RESTLESSNESS. REPOSITIONED. CIRCULATION CHECK DONE. ORAL CARE GIVEN. SUCTIONED WITH SAME RESULTS.
--- NOTE | 2018-08-03 00:20 | NUR ---
LEVOPHED TITRATED TO 9 MCG/MIN.
[2018-08-03] MEDS: ALBUTEROL SULFATE 0.083% 2.5 MG/3 ML VIAL.NEB INH SCH ×4 (01:10→19:36)
[2018-08-03] MEDS: IPRATROPIUM BROM 0.5 MG/2.5 ML VIAL.NEB (ATROVENT) INH SCH ×4 (01:10→19:36)
[2018-08-03] MEDS: LORazepam 2 MG/ML VIAL IVP PRN ×8 (01:19→19:28)
--- NOTE | 2018-08-03 01:19 | NUR ---
RESTLESS AT TIMES, ATIVAN 1 MG IVP GIVEN.
--- NOTE | 2018-08-03 02:00 | NUR ---
SUCTIONED. TURNED. PULSES PALPABLE.
--- NOTE | 2018-08-03 04:00 | NUR ---
TEMP BETTER. RESTLESS AT TIMES. OPENS EYES SPONTANEOUSLY. SUCTIONED. PULSES PALPABLE. UO BETTER. ORAL CARE RENDERED. FLAILS LEGS, FAVORS LYING AT AN ANGLE. ATIVAN 1 MG IVP GIVEN FOR SEDATION.
[2018-08-03] MEDS: PIPERACILLIN/TAZO 3.375/DEX-IS 50 ML IV SCH ×4 (05:29→23:04)
--- NOTE | 2018-08-03 06:00 | NUR ---
SUCTIONED AND TURNED Q2 HRS AND PRN. AM CARE RENDERED. UO GOOD. AFIB W/CVR. LEVOPHED AT 9 MCG/MIN. REMAINS IN GUARDED CONDITION.
[2018-08-03] MEDS ORDERED: NOREPINEPHRINE 4 MG/4 ML VIAL IV ONE (07:05)
--- NOTE | 2018-08-03 07:20 | NUR ---
AM Assessment Received pt lethargic, unable to follow commands, intubated. AC 16, TV 550, FiO2 40%, PEEP 5. ETT 7.5, 22 cm lip line. Skin warm and dry. Noted discoloration right foot. IV 20G LAC and left hand intact, patent, no infiltration noted, receiving D5NS @ 125 ml/hr. On levophed drip 9 mcg/min. Adventitious lung sounds. SR on monitor, HR 70s. GT present, clamped, with abdominal binder in place. Harley in place draining yellow urine. Bilateral soft wrist restraints in place for safety, pulses present, no skin breakdown noted. Bed locked in lowest position. Call light in reach. Will continue to monitor.
--- NOTE | 2018-08-03 07:20 | NUR ---
RT NOTES ABG RESULTS REPORTED TO MARYAM BORREGO. SO2 IS 98.3%. TITRATED FIO2 VIA VENT TO 40%. RN MADE AWARE. WILL CONTINUE MONITORING.
--- NOTE | 2018-08-03 07:30 | NUR ---
RN NOTES: FAMILY CONFERENCE MD AT BEDSIDE, DISCUSSED COMFORT MEASURES WITH PATIENT'S FAMILY DUE TO OVERALL POOR PROGNOSIS OF THE PATIENT.
[2018-08-03] MEDS ORDERED: HYDROCORTISONE SOD SUCC 100 MG/2 ML VIAL IVP ONE ×2 (08:00→09:15)
[2018-08-03] MEDS: PANTOPRAZOLE SODIUM 40 MG TAB GT SCH (09:05)
[2018-08-03] MEDS: TERAZOSIN HCL 1 MG CAPSULE (HYTRIN) GT SCH (09:05)
[2018-08-03] MEDS: ASPIRIN 81 MG TABLET(ECOTRIN) GT SCH (09:06)
[2018-08-03] MEDS: METOPROLOL TARTRATE 25 MG TABLET GT SCH ×2 (09:06→21:00)
[2018-08-03] MEDS: APIXABAN 2.5 MG TABLET GT SCH ×2 (09:07→21:05)
[2018-08-03] MEDS: LevETIRAcetam 100 MG/ML UDC ORAL LIQUID GT SCH ×2 (09:08→21:08)
[2018-08-03] MEDS: D5NS 1,000 ML IV SCH ×2 (09:10→14:23)
--- NOTE | 2018-08-03 10:03 | NUR ---
Nutrition Update Gonzalo Scale 14 noted. Pt admitted for aspiration pneumonia. Diet: NPO BMI: 24.5 kg/m2 RD to follow per nutrition care standards.
[2018-08-03] MEDS: MORPHINE 2 MG/ML INJ. SYRINGE IVP PRN ×4 (11:06→16:49)
--- NOTE | 2018-08-03 13:31 | NUR ---
Pt Round Pt repositioned. Administered oral care, bed bath, linen change. PRN meds given. Pt lethargic but moving feet and kicking feet periodically. No s/s of distress or discomfort. No additional skin breakdown noted from wrist restraints. Will continue to monitor.
[2018-08-03] MEDS: HYDROCORTISONE SOD SUCC 100 MG/2 ML VIAL IVP SCH ×2 (14:20→21:04)
--- NOTE | 2018-08-03 14:22 | NUR ---
Dietitian Recommendations * Consider advance diet if/when medically appropriate -- Vital AF 1.2 TF trophic feeds within 24-48 hours LP, RD Please refer to Nutrition Assessment for details. Addendum: 08/04/18 at [address] RD received call from pt's primary RN regarding plans to start TF today as per MD order. RD provided recommendation: Vital AF 1.2 at 20 ml/hr, increase rate by 10 ml Q6h to goal rate of 75 ml/hr, Free Water Flush: 150 ml Q6h via GT Provides: 2160 kcal/day, 135 gm protein/day, and 2060 ml free water/day -- at goal rate Meets: 108% of estimated caloric needs and 113% of lower end of estimated protein needs RD to continue to follow as per nutrition care standards.
[2018-08-03] MEDS: NOREPINEPHRINE BITARTRATE 4 MG in D5W 246 ML IV PRN ×2 (14:24→23:05)
--- NOTE | 2018-08-03 16:18 | NUR ---
Rounds Pt calm, no signs of pain or distress noted. IV sites intact, patent, no infiltration noted. Still on levophed 9 mcg/min. Bed locked in lowest position. Will continue to monitor.
--- NOTE | 2018-08-03 18:44 | NUR ---
Closing Pt calm, resting in bed on left side. IV sites intact and patent. No infiltration noted. Pt still on Levophed drip @ 7mcg/min. Remains on ventilator with FiO2 @ 40%, tolerating well. Pt remains on wrist restraints. No additional skin breakdown noted. Bed locked in lowest position. Call light within reach. Will endorse plan of care to Noc shift RN.
--- NOTE | 2018-08-03 19:13 | NUR ---
Endorsed plan of care to Jena FRANCISCO via SBAR and bedside round.
[2018-08-03] MEDS: LEVOFLOXACIN 500 MG/D5W 100 ML IV SCH (19:28)
--- NOTE | 2018-08-03 19:30 | NUR ---
PM ASSESSMENT REPORT RECEIVED FROM SALIMA FRANCISCO. PT RECEIVED IN BED WITH EYES CLOSED, RESPONDING TO VERBAL STIMULATION. PT RESTLESS AND KICKING LEGS AT THIS TIME. PT INTUBATED, VENT SETTINGS: AC 16, TV 550, FIO2 40%, PEEP 5, SAT 99%. A-FIB/A-FLUTTER ON MONITOR. BILATERAL SOFT WRIST RESTRAINTS IN PLACE, NO S/S OF INJURY NOTED. LAC 20G INFUSING D5 NS @ 100 CC/HR. L HAND 20G INFUSING LEVOPHED DRIP @ 7 MCG/MIN. G-TUBE IN PLACE, CLAMPED. GALARZA CATH IN PLACE DRAINING YELLOW URINE TO GRAVITY. HOB ELEVATED, BED IN LOWEST POSITION, CALL LIGHT IN REACH. WILL CONTINUE TO MONITOR PT. Addendum: 08/04/18 at 0258 by Jena De León RN ABDOMINAL BINDER IN PLACE OVER CLAMPED GTUBE.
[2018-08-03] MEDS: ATORVASTATIN 20 MG TABLET GT SCH (21:05)
[2018-08-04] VITALS (36 sets, daily range): BP systolic 90–135
--- NOTE | 2018-08-04 | NUR ---
RN ROUNDS PT RESTLESS IN BED AND KICKING LEGS. PT MEDICATED WITH ATIVAN AT THIS TIME PER ORDERS. PT REPOSITIONED AND MADE COMFORTABLE. VSS, NO S/S OF DISTRESS NOTED. WILL CONTINUE TO MONITOR PT.
[2018-08-04] MEDS: ALBUTEROL SULFATE 0.083% 2.5 MG/3 ML VIAL.NEB INH SCH ×4 (00:41→19:42)
[2018-08-04] MEDS: IPRATROPIUM BROM 0.5 MG/2.5 ML VIAL.NEB (ATROVENT) INH SCH ×4 (00:41→19:42)
[2018-08-04] MEDS: MORPHINE 2 MG/ML INJ. SYRINGE IVP PRN ×5 (00:55→22:05)
[2018-08-04] MEDS: LORazepam 2 MG/ML VIAL IVP PRN ×9 (01:46→23:33)
--- NOTE | 2018-08-04 02:52 | NUR ---
RN ROUNDS PT RESTING COMFORTABLY IN BED. VSS, NO S/S OF DISTRESS NOTED. BREATHING IS EVEN AND UNLABORED ON MECHANICAL VENTILATOR. LEVOPHED INFUSING AT 3 MCG/MIN AT THIS TIME. WILL CONTINUE TO MONITOR PT.
[2018-08-04] MEDS: D5NS 1,000 ML IV SCH (03:17)
[2018-08-04] MEDS: HYDROCORTISONE SOD SUCC 100 MG/2 ML VIAL IVP SCH ×3 (05:07→22:04)
[2018-08-04] MEDS: PIPERACILLIN/TAZO 3.375/DEX-IS 50 ML IV SCH ×4 (05:07→23:41)
--- NOTE | 2018-08-04 05:15 | NUR ---
RN ROUNDS PT RESTLESS IN BED, WITH INCREASED HR AT 121. PT GIVEN ATIVAN AND MORPHINE PER ORDERS. VSS, NO S/S OF DISTRESS NOTED. PT REPOSITIONED AT THIS TIME AND MADE COMFORTABLE. WILL CONTINUE TO MONITOR PT.
[2018-08-04 07:10] LABS: EOSINOPHILS % (AUTO) 0.1 % (0.0-4.0); HEMOGLOBIN 11.3 g/dL (14.0-18.0); RED CELL DISTRIBUTION WIDTH 16.7 % (9.0-15.0)
--- NOTE | 2018-08-04 07:23 | NUR ---
ENDORSEMENT BEDSIDE REPORT GIVEN TO JONNY FRANCISCO USING SBAR APPROACH.
--- NOTE | 2018-08-04 07:25 | NUR ---
RT NOTES FIO2 to 35% per ABG results & titration order. No immediate adverse reactions noted. Will monitor pt.
[2018-08-04 07:27] LABS: ALANINE AMINOTRANSFERASE 60 U/L (12-78); ALBUMIN 1.7 g/dL (3.4-4.8); ANION GAP 9 (5-15); ASPARTATE AMINOTRANSFERASE 38 U/L (10-37); CALCIUM 8.4 mg/dL (8.4-11.0); CHLORIDE 106 mmol/L (98-107); CREATININE 1.31 mg/dL (0.55-1.30); GLUCOSE 223 mg/dL (70-99); SODIUM SERUM 140 mmol/L (136-145); TOTAL BILIRUBIN 0.5 mg/dL (0.0-1.0); UREA NITROGEN, BLOOD 17 mg/dL (8-21)
--- NOTE | 2018-08-04 07:31 | NUR ---
AM Assessment Received pt lethargic, responsive to touch, unable to follow commands. Intubated to vent AC 16, TV 550, FiO2 35%, PEEP 5. Skin warm and dry. IV sites intact, patent, no infiltration noted. On levophed drip 1 mcg/min. Adventitious lung sounds. Atrial flutter on monitoring specialist, HR 100s. Hypoactive bowel sounds. GT in place and clamped with abd binder. Harley in place draining yellow urine. Bilat. soft wrist restraints in place for safety, pulses present, no skin breakdown noted. Bed locked in lowest position. Call light in reach. Will continue to monitor.
[2018-08-04 07:35] LABS: POTASSIUM 2.9 mmol/L (3.5-5.1)
[2018-08-04 07:40] LABS: BASOPHILS % (AUTO) 0.1 % (0.0-2.0); LYMPHOCYTES # (AUTO) 0.7 K/uL (1.0-5.5); LYMPHOCYTES % (AUTO) 6.5 % (20.5-51.5); MEAN CORPUSCULAR HEMOGLOBIN 30 pg (27-31); MEAN CORPUSCULAR HGB CONC 34 % (32-36); MEAN CORPUSCULAR VOLUME 88 fL (79.0-98.0); MONOCYTES # (AUTO) 0.4 K/uL (0.0-1.0); NEUTROPHILS # (AUTO) 9.8 K/uL (1.8-7.7); NEUTROPHILS % (AUTO) 89.3 % (40.0-70.0); PLATELET COUNT (AUTO) 196 K/uL (130-430); RED BLOOD CELL COUNT(AUTO) 3.73 MIL/uL (4.2-6.2); WHITE BLOOD COUNT (AUTO) 10.9 K/uL (4.8-10.8)
--- NOTE | 2018-08-04 07:50 | NUR ---
RT NOTES Pt. cont. to tolerated 35% FIO2. Family at bedside.
--- NOTE | 2018-08-04 08:02 | NUR ---
PAGE OUT FOR DR CLEMONS REGARDING CRITICAL K+, SPOKE TO DORIS, AWAITING RETURN CALL.
[2018-08-04] MEDS ORDERED: POTASSIUM CHLORIDE 40 MEQ in NS 250 ML IV ONE (08:15)
[2018-08-04] MEDS: APIXABAN 2.5 MG TABLET GT SCH ×2 (08:43→20:30)
[2018-08-04] MEDS: ASPIRIN 81 MG TABLET(ECOTRIN) GT SCH (08:45)
[2018-08-04] MEDS: METOPROLOL TARTRATE 25 MG TABLET GT SCH ×2 (08:45→20:30)
[2018-08-04] MEDS: TERAZOSIN HCL 1 MG CAPSULE (HYTRIN) GT SCH (08:45)
[2018-08-04] MEDS: PANTOPRAZOLE SODIUM 40 MG TAB GT SCH (08:45)
[2018-08-04] MEDS: LevETIRAcetam 100 MG/ML UDC ORAL LIQUID GT SCH ×2 (08:46→20:32)
--- NOTE | 2018-08-04 09:50 | NUR ---
RT NOTES Per Dr Alfredo's order, pushed ETT 2 cm down. Secured ETT at 24cm lipline w/ RT Ashly. No adverse reactions noted. Cuff pressure 25 cmH2O. Will monitor pt. Pt. was suctioned both orally and via ETT before cuff deflation & tube re-position.
--- NOTE | 2018-08-04 09:51 | NUR ---
Nutrition Note RD received call from pt's primary RN regarding plans to start TF today as per MD order. RD provided recommendation: Vital AF 1.2 at 20 ml/hr, increase rate by 10 ml Q6h to goal rate of 75 ml/hr, Free Water Flush: 150 ml Q6h via GT Provides: 2160 kcal/day, 135 gm protein/day, and 2060 ml free water/day -- at goal rate Meets: 108% of estimated caloric needs and 113% of lower end of estimated protein needs RD to continue to follow as per nutrition care standards.
--- NOTE | 2018-08-04 10:10 | NUR ---
RT NOTES Vent settings to SIMV [address] Alfredo's order. Vitals pre change: H.R 105 R.R 16 exhaled CO2 29mmHg. @1117 Pt. cont. to tolerate settings well. H.R 105 R.R 10-12 Saturation 99% exhaled CO2 32 mmHg. RN to notify RT if distress develops.
--- NOTE | 2018-08-04 10:15 | NUR ---
Vent settings changed to SIMV by Leigha MULLINS per Dr. Alfredo's orders. Will continue to monitor.
[2018-08-04] MEDS: D5/0.45 NS 1,000 ML IV SCH ×2 (10:53→23:30)
--- NOTE | 2018-08-04 11:57 | NUR ---
Update Pt's son Edgardo at bedside with pt. Edgardo states he wants to "discuss pt care with a palliative care consult." Paged Dr. Kapadia for orders, spoke with consult waiting for call back.
--- NOTE | 2018-08-04 13:10 | NUR ---
Social Service Note: Pt referred to geriatric social work professor by physician to meet with family to discuss pt's code status. ELECTRIC METER INSPECTOR met with pt's daughter, son and in ICU waiting room. ELECTRIC METER INSPECTOR allowed pt's family to discuss their understanding of pt's condition and pt's wishes. Pt's family all state that they do not want chest compressions or shock, pt's family does not want to ventilator removed at this time. Pt's family would like to see if pt can be weaned from the ventilator. ELECTRIC METER INSPECTOR explained to pt's family what the options are if pt is unable to be weaned from the ventilator; trach vs. extubation. Pt's family appears to understand their options and state that if pt cannot be weaned they do not want a trach. ELECTRIC METER INSPECTOR provided emotional support and answered further questions about pt's care. ELECTRIC METER INSPECTOR updated pt's nurse of pt's family's wishes as far as code status. Pt's nurse will take new code status form to the family. [facility] has provided contact information for ELECTRIC METER INSPECTOR to family members and encouraged them to reach out should any concerns arise. ELECTRIC METER INSPECTOR will remain available for support and will follow up as needed.
--- NOTE | 2018-08-04 16:30 | NUR ---
WOUND EVALUATION: Late note for 163 secondary to patient care. Wound Consult received from Dr. Kapadia. Thank you, Dr. Kapadia, for the consult. Patient received in a Karla Bed with an Isoflex LUZ mattress, low air loss therapy was initiated. Patient was awake, responsive to verbal commands. Patient is unable to turn in bed independently. Gonzalo Score is a 14. Past Medical History: Recent CVA (Ischemic), Atrial fibrillation, history of CABG, Anorexia, weight loss, Percutaneous Endoscopic Gastrostomy placement due to continued decline and failure to thrive. Admitted to [facility] for Respiratory Failure and was intubated by the ER physician. Recent Labs: WBC 10.9, RBC 3.73, hemoglobin 11.3, hematocrit 33.0, potassium 2.9, BUN 17, creatinine 1.31, glucose 223, AST 38, BNP 214, albumin 1.7, PT 13.2, INR 1.3, PTT 36.1, ABG pH 7.465, ABG PCO2 33.6, ABG PO2 115. Intrinsic factors that delay wound healing: Respiratory failure, severe hypoalbuminemia, CABG, CVA. Extrinsic factors that delay wound healing: Immobility. Microbiology: Urine culture results in progress. Endotracheal culture results in progress. MRSA screen results negative. Blood culture results 2 in progress. Wound Assessment: 1. Right cheek: Wound. Wound bed has 100% pink tissue. No odor, scant serous drainage. Periwound has residual skin. Wound measures 1.1 cm x 1.9 cm, superficial depth. Skin appears to be very fragile, and breaks easily. Recommend: Cleanse wound with normal saline. Put sure prep onto periwound. Place oil emulsion dressing onto site. Cover with transparent dressing. Perform site care daily, and as needed for dressing soiling or dislodgement. Check site every 4 hours for signs of skin breakdown. If needed, have respiratory therapist adjust holster to keep holster off of involved area. 2. Left cheek: Blanchable erythema. Skin appears to be very fragile, and breaks easily. Recommend: Cleanse site with normal saline. Put sure prep onto periwound. Place foam dressing cut to size onto site. Cover with transparent dressing. Perform site care daily, and as needed for dressing soiling or dislodgement. Check site every 4 hours for signs of skin breakdown. If needed, have respiratory therapist adjust holster to keep holster off of involved area. Also recommend: Reposition patient every 2 hours with pillow support and off-load pressure areas with pillows for pressure re-distribution. Offload, elevate and float bilateral heels with pillows. Perform skin care and monitor skin integrity Q shift. Use moisture barrier cream on buttocks and other moisture susceptible areas QID and as needed for soiling. Maintain patient on a low air-loss mattress.
--- NOTE | 2018-08-04 17:00 | NUR ---
Update/Wound/Respiratory Administered CHG bath, linen change, and repositioning at 1625. Noted redness around perimeter and peeling from holster adhesive device for ETT on pt's right cheek while wiping pt's eyes. Notified Leigha MULLINS who states, "I noticed it earlier, but I was not told that there was something there from the previous RT from security shift manager or yesterday." Notified Dieudonne FRANCISCO of [facility]. Dieudonne FRANCISCO present at bedside removed holster adhesives from ETT and perform skin check, applied oil emulsion, covered with suresite, and placed foam under holster. Holster removed and replaced in lower position by Leigha MULLINS and Ashly RT guided by Dieudonne FRANCISCO in order to relieve pressure from site. Pt tolerated well. Will continue to monitor. Addendum: 08/04/18 at 1805 by Radha Castillo RN Photograph taken of site
--- NOTE | 2018-08-04 17:10 | NUR ---
RT NOTES Found ETT at 22cm lipline, mary arias undone. @1720 Advanced ETT 2cm down securing at 24cm lipline. Bilateral B.S and chest rise noted, no respiratory distress noted. Charge nurse to order CXR to confirm ETT position. @1740 awaiting CXR result. Will endorse to on-coming shift.
--- NOTE | 2018-08-04 17:10 | NUR ---
RT NOTES Called to bedside due to redness on patient's right cheek underneath mary ETT arias. Arrived at bedside finding what appears to be an open wound on pt's right cheek, wound care nurse at bedside assessing pt's skin. Wound care nurse placed a barrier on both sides of pt's cheek before applying new mary ETT arias. ETT secure at 24cm lipline. Bilateral b.s. and chest rise noted. No respiratory distress noted. Addendum: 08/04/18 at 1750 by Leigha Dan RT Amended: Links added.
--- NOTE | 2018-08-04 19:25 | NUR ---
Closing/Endorsement Pt in no signs of distress. IV sites intact, patent, no infiltration noted. VS stable, afebrile. Bilateral soft wrist restraints in place for safety, no additional skin breakdown noted. GT feeding Vital AF running 20 ml/hr. Bed locked in lowest position. Call light in reach. Endorsed plan of care to Raina FRANCISCO via SBAR and bedside round.
--- NOTE | 2018-08-04 19:30 | NUR ---
Opening Note: RECEIVED PATIENT LETHARGIC, RESPONDS TO TACTILE STIMULATION. PT AFIB ON ELECTRICAL SUPERINTENDENT. PT INTUBATED, ETT TO VENT, SIZE 7.5, @ 24 LIPLINE. VENT SETTINGS SIMV 10, TV 550, FIO2 35%, PEEP 5, PS 10, SATURATING @ 98%. PIV SITES INTACT, NO INFILTRATION NOTED. IVF INFUSING WELL, D5 1/2 NS @ 75MLS/HR. PT ON TUBEFEEDING VIA GTUBE, VITAL AF @ 20MLS/HR, NO RESIDUAL NOTED. PT ON GALARZA, SECURED AND IN PLACE, YELLOW COLORED URINE NOTED. PT IN BILATERAL SOFT WRIST RESTRAINTS, NO SKIN BREAKDOWN NOTED. HOB ELEVATED, CALL LIGHT PLACED WITHIN REACH. POC DISCUSSED. BED LOCKED, IN LOWEST POSITION. NO DISTRESS NOTED. WILL CONTINUE TO MONITOR.
[2018-08-04] MEDS: LEVOFLOXACIN 500 MG/D5W 100 ML IV SCH (19:53)
[2018-08-04] MEDS: ATORVASTATIN 20 MG TABLET GT SCH (20:29)
[2018-08-05] VITALS (35 sets, daily range): BP systolic 91–144
--- NOTE | 2018-08-05 | NUR ---
TUBEFEEDING TUBEFEEDING INCREASED TO 30 ML/HRS PER MD'S ORDER. Addendum: 08/05/18 at 0330 by Mynor Rojas RN TUBEFEEDING TUBEFEEDING INCREASED TO 30 ML/HRS PER MD'S ORDER. PT TOLERATING WELL. WILL CONTINUE TO MONITOR.
[2018-08-05] MEDS: IPRATROPIUM BROM 0.5 MG/2.5 ML VIAL.NEB (ATROVENT) INH SCH ×4 (00:57→19:51)
[2018-08-05] MEDS: ALBUTEROL SULFATE 0.083% 2.5 MG/3 ML VIAL.NEB INH SCH ×4 (00:57→19:51)
[2018-08-05] MEDS: MORPHINE 2 MG/ML INJ. SYRINGE IVP PRN ×6 (01:36→23:51)
[2018-08-05] MEDS: LORazepam 2 MG/ML VIAL IVP PRN ×8 (01:36→22:50)
--- NOTE | 2018-08-05 02:00 | NUR ---
RN ROUNDS PT RESTING COMFORTABLY IN BED. BREATHING IS UNLABORED ON MECHANICAL VENT. PT REPOSITIONED AT THIS TIME. BED LOCKED AND AT LOWEST POSITION, CALL LIGHT W/IN REACH, NO S/S OF DISTRESS OR DISCOMFORT NOTED. WILL CONTINUE TO MONITOR.
--- NOTE | 2018-08-05 04:15 | NUR ---
RN ROUNDS PT RESTING COMFORTABLY IN BED. PT REPOSITIONED AND GIVEN ORAL CARE AT THIS TIME. BED LOCKED AND AT LOWEST POSITION, CALL LIGHT W/IN REACH, NO S/S OF DISTRESS OR DISCOMFORT NOTED. WILL CONTINUE TO MONITOR.
[2018-08-05] MEDS: HYDROCORTISONE SOD SUCC 100 MG/2 ML VIAL IVP SCH ×3 (05:29→21:02)
[2018-08-05] MEDS: PIPERACILLIN/TAZO 3.375/DEX-IS 50 ML IV SCH ×4 (05:29→23:39)
[2018-08-05 05:37] LABS: ANION GAP 7 (5-15); BASOPHILS % (AUTO) 0.1 % (0.0-2.0); CALCIUM 8.1 mg/dL (8.4-11.0); CHLORIDE 108 mmol/L (98-107); CREATININE 1.25 mg/dL (0.55-1.30); GLUCOSE 208 mg/dL (70-99); HEMATOCRIT 32.6 % (36-54); HEMOGLOBIN 10.9 g/dL (14.0-18.0); LYMPHOCYTES # (AUTO) 0.7 K/uL (1.0-5.5); LYMPHOCYTES % (AUTO) 7.8 % (20.5-51.5); MEAN CORPUSCULAR HEMOGLOBIN 30 pg (27-31); MEAN CORPUSCULAR HGB CONC 34 % (32-36); MEAN CORPUSCULAR VOLUME 88 fL (79.0-98.0); MONOCYTES # (AUTO) 0.3 K/uL (0.0-1.0); MONOCYTES % (AUTO) 3.5 % (1.7-9.3); NEUTROPHILS # (AUTO) 7.8 K/uL (1.8-7.7); NEUTROPHILS % (AUTO) 88.6 % (40.0-70.0); PLATELET COUNT (AUTO) 155 K/uL (130-430); POTASSIUM 3.1 mmol/L (3.5-5.1); RED BLOOD CELL COUNT(AUTO) 3.71 MIL/uL (4.2-6.2); RED CELL DISTRIBUTION WIDTH 16.7 % (9.0-15.0); SODIUM SERUM 139 mmol/L (136-145); UREA NITROGEN, BLOOD 17 mg/dL (8-21); WHITE BLOOD COUNT (AUTO) 8.8 K/uL (4.8-10.8)
[2018-08-05 05:44] LABS: ALANINE AMINOTRANSFERASE 71 U/L (12-78); ALBUMIN 1.8 g/dL (3.4-4.8); ASPARTATE AMINOTRANSFERASE 52 U/L (10-37); TOTAL BILIRUBIN 0.5 mg/dL (0.0-1.0)
--- NOTE | 2018-08-05 07:30 | NUR ---
AM ASSESSMENT Pt received laying in bed with eyes closed. Pt is easily arousable to verbal and tactile stimulation. Pt does not follow verbal commands at this time. Pt is intubated with vent settings of SIMV 10, TV 550, FiO2 35%, PEEP 5, PS 10 with oxygen saturation of 99% on the monitor. IV access Left AC #20 infusing D51/2 NS @ 75 cc/hr with no signs of infiltration. Left Hand #20 SL, patent with no signs of infiltration. Pt receiving tube feeding with Vital AF via G-Tube @ 40 cc/hr with 30 cc of residual noted. Harley cath draining to gravity with yellow urine. Pillows applied to left side of body to offload pressure and bilateral pillows placed under hands bilaterally. HOB confirmed at 30 degrees. Confirmation of allergy bracelet. Pt reoriented to call light. Bed in lowest position. No signs of distress, will continue to monitor.
--- NOTE | 2018-08-05 07:41 | NUR ---
ENDORSEMENT BEDSIDE REPORT GIVEN TO HARLEEN FRANCISCO USING SBAR APPROACH.
--- NOTE | 2018-08-05 08:20 | NUR ---
Family Pt's son Edgardo at bedside with pt. Edgardo confirmed that Caren Carrillo and Ab Reyes is not allowed to visit or call for information regarding pt.
--- NOTE | 2018-08-05 08:54 | NUR ---
MD Dr. Kapadia at bedside with pt and son Edgardo. Made Doctor aware of pts am potassium level and current unsigned code status. No new orders.
[2018-08-05] MEDS: ASPIRIN 81 MG TABLET(ECOTRIN) GT SCH (09:17)
[2018-08-05] MEDS: TERAZOSIN HCL 1 MG CAPSULE (HYTRIN) GT SCH (09:23)
[2018-08-05] MEDS: APIXABAN 2.5 MG TABLET GT SCH ×2 (09:27→21:00)
[2018-08-05] MEDS: PANTOPRAZOLE SODIUM 40 MG TAB GT SCH (09:28)
[2018-08-05] MEDS: METOPROLOL TARTRATE 25 MG TABLET GT SCH ×2 (09:28→21:01)
[2018-08-05] MEDS: LevETIRAcetam 100 MG/ML UDC ORAL LIQUID GT SCH ×2 (09:37→21:02)
[2018-08-05] MEDS ORDERED: POTASSIUM CHLORIDE 20 MEQ/PKT PACKET PO ONE (12:30)
--- NOTE | 2018-08-05 12:30 | NUR ---
Oral Care / Feeding Pt provided oral care and tolerated well. Checked G-Tube for residual and increased feeding rate to 50 cc/hr, will continue to monitor. Pt provided with 150 cc of water flush. Will continue to monitor pt.
--- NOTE | 2018-08-05 13:00 | NUR ---
Ventilator Settings Vent settings changed to SIMV 4. Pt is tolerating well, will continue to monitor.
[2018-08-05] MEDS: D5/0.45 NS 1,000 ML IV SCH (13:33)
--- NOTE | 2018-08-05 14:00 | NUR ---
CHG CHG provided to pt. Linen change provided to pt. Pt tolerated well, will continue to monitor.
--- NOTE | 2018-08-05 14:15 | NUR ---
Wound Care Pt provided wound care to left and right cheek. Pt was prophylactically medicated for pain prior to dressing change. Pt tolerated being medicated and the wound care provided. ET Tube fastener removed so that right side cheek wound can be visualized, and left side too. Wound care provided and a new ET tube fastener applied to pt.
--- NOTE | 2018-08-05 19:14 | NUR ---
Closing Notes Pt resting in bed with eyes closed. Vital signs stable, bed in lowest position with call light within reach. Endorsed to night RN.
--- NOTE | 2018-08-05 19:20 | NUR ---
Initial Notes Received patient resting in bed with eyes closed, easily aroused, confused, does not follow commands. Patient appears in no acute distress or pain at this time. Breathing is even and unlabored on mechanical vent. IV to left hand patent/clean/dry. IV to left arm patent but oozing, dressing change provided. Harley draining to gravity. Patient is on bilateral soft wrist restraints, tolerating well, no adverse effects noted. Repositioned patient for comfort. Fall precautions in place. Will continue to monitor.
[2018-08-05] MEDS: LEVOFLOXACIN 500 MG/D5W 100 ML IV SCH (19:30)
[2018-08-05] MEDS: ATORVASTATIN 20 MG TABLET GT SCH (21:00)
--- NOTE | 2018-08-05 22:02 | NUR ---
Nursing Notes Patient resting in bed, confused, restless. Medicated patient per MD orders. Patient tolerating mech vent, trach suctioning provided. Left arm IV continues to ooze after dressing change, site discontinued, pressure dressing applied. New IV access started by Bettie FRANCISCO, right forearm, #20, aseptic tech used, good blood return noted, flushes with ease. Patient repositioned for comfort. Harley draining to gravity. BSWR in use, patient tolerating well. Will continue to monitor.
[2018-08-06] VITALS (31 sets, daily range): BP systolic 90–144
[2018-08-06] MEDS: LORazepam 2 MG/ML VIAL IVP PRN ×4 (00:02→11:23)
--- NOTE | 2018-08-06 00:15 | NUR ---
Nursing Notes Patient resting in bed, awake, confused, restless. Medicated patient for agitation per MD orders. Oral care and trach suctioning provided. Harley draining to gravity. IV site patent/clean/dry. Needs addressed. Will continue to monitor.
[2018-08-06] MEDS: MORPHINE 2 MG/ML INJ. SYRINGE IVP PRN ×3 (01:50→11:23)
[2018-08-06] MEDS: IPRATROPIUM BROM 0.5 MG/2.5 ML VIAL.NEB (ATROVENT) INH SCH ×4 (02:02→19:57)
[2018-08-06] MEDS: ALBUTEROL SULFATE 0.083% 2.5 MG/3 ML VIAL.NEB INH SCH ×4 (02:15→19:57)
--- NOTE | 2018-08-06 04:30 | NUR ---
Nursing Notes Patient resting in bed, awake, confused. No acute distress noted, patient tolerating mech vent. Oral care and trach suctioning provided. Skin care, pericare, and linen change provided. IV site patent/clean/dry. Harley draining to gravity, will continue to monitor.
[2018-08-06] MEDS: HYDROCORTISONE SOD SUCC 100 MG/2 ML VIAL IVP SCH ×3 (05:18→21:53)
[2018-08-06] MEDS: PIPERACILLIN/TAZO 3.375/DEX-IS 50 ML IV SCH ×4 (05:18→23:51)
--- NOTE | 2018-08-06 06:10 | NUR ---
Switched to CPAP Per Myriam RT, patient switched to CPAP per MD orders at 0610. No acute distress noted, patient tolerating new settings. Will continue to monitor.
[2018-08-06 06:31] LABS: BASOPHILS % (AUTO) 0.5 % (0.0-2.0); EOSINOPHILS % (AUTO) 0.1 % (0.0-4.0); HEMATOCRIT 32.7 % (36-54); HEMOGLOBIN 10.8 g/dL (14.0-18.0); LYMPHOCYTES # (AUTO) 0.6 K/uL (1.0-5.5); LYMPHOCYTES % (AUTO) 9.5 % (20.5-51.5); MEAN CORPUSCULAR HEMOGLOBIN 29 pg (27-31); MEAN CORPUSCULAR HGB CONC 33 % (32-36); MEAN CORPUSCULAR VOLUME 89 fL (79.0-98.0); MONOCYTES # (AUTO) 0.3 K/uL (0.0-1.0); MONOCYTES % (AUTO) 4.2 % (1.7-9.3); NEUTROPHILS # (AUTO) 5.6 K/uL (1.8-7.7); NEUTROPHILS % (AUTO) 85.7 % (40.0-70.0); PLATELET COUNT (AUTO) 134 K/uL (130-430); RED BLOOD CELL COUNT(AUTO) 3.69 MIL/uL (4.2-6.2); RED CELL DISTRIBUTION WIDTH 17.3 % (9.0-15.0); WHITE BLOOD COUNT (AUTO) 6.5 K/uL (4.8-10.8)
--- NOTE | 2018-08-06 06:43 | NUR ---
Closing Notes Patient resting in bed with eyes closed, easily aroused. No change in mentation, patient remains confused, unable to follow commands. Breathing is even and unlabored, tolerating mech vent at this time with ordered CPAP settings. IV sites patent/clean/dry, no S/S infection/infiltration noted. Patient tolerating tube feeding, goal reached @ 75ml/hr, HOB elevated. Harley draining yellow urine to gravity. Bilateral soft wrist restraints in use, no adverse effects noted. Needs addressed throughout shift. Fall precautions in place. Will continue to monitor for changes and safety, and endorse all patient care/needs to oncoming nurse.
[2018-08-06 06:52] LABS: ANION GAP 8 (5-15); CALCIUM 8.3 mg/dL (8.4-11.0); CHLORIDE 106 mmol/L (98-107); CREATININE 1.35 mg/dL (0.55-1.30); GLUCOSE 296 mg/dL (70-99); POTASSIUM 3.3 mmol/L (3.5-5.1); SODIUM SERUM 141 mmol/L (136-145); UREA NITROGEN, BLOOD 22 mg/dL (8-21)
--- NOTE | 2018-08-06 08:00 | NUR ---
AM ASSESSMENT Pt laying in bed supine. No s/s of distress or discomfort. Pt aroused by tactile and verbal stimuli. Pt unable to follow commands. Respiration even and unlabored. Lung sounds clear bilaterally. Pt on vent, CPAP. FiO2 35%, PEEP 5, PS 10, with O2 saturation of 99% on monitor. S1 and S2 noted with AFIB/ A. Flutter showing on monitor. Pt remains to show tachycardia at this time. Radial pulse noted bilaterally. Weak pedal pulses noted bilaterally. Bowel sounds present and active in 4 quadrants.Pt received tube feeding Vital AF @75 mL/hr with 60cc of residual. Pt skin warm and dry. Wound noted on Rt cheek covered with dressing. Dressing dry, no drainage noted. IV sites on Lt hand 20g running D5 1/2 NS @40 mL/hr. IV site on Rt hand 20g SL. Pt narayanan cath remains in place draining to gravity yellow urine. Bilateral soft wrist restraints in place. No additional skin breakdown noted. Will continue to monitor.
[2018-08-06] MEDS: TERAZOSIN HCL 1 MG CAPSULE (HYTRIN) GT SCH (09:04)
[2018-08-06] MEDS: METOPROLOL TARTRATE 25 MG TABLET GT SCH ×2 (09:05→21:53)
[2018-08-06] MEDS: ASPIRIN 81 MG TABLET(ECOTRIN) GT SCH (09:05)
[2018-08-06] MEDS: PANTOPRAZOLE SODIUM 40 MG TAB GT SCH (09:05)
[2018-08-06] MEDS: APIXABAN 2.5 MG TABLET GT SCH ×2 (09:07→22:00)
[2018-08-06] MEDS: LevETIRAcetam 100 MG/ML UDC ORAL LIQUID GT SCH ×2 (09:08→21:53)
--- NOTE | 2018-08-06 12:10 | NUR ---
WOUND RE-EVALUATION: Late note for 1210 secondary to patient care. Patient received in a Karla Bed with an Isoflex LUZ mattress with low air loss therapy. Patient was awake, non-responsive to verbal commands. Patient is unable to turn in bed independently. Gonzalo Score is a 15. Intrinsic factors that delay wound healing: Respiratory failure, severe hypoalbuminemia, CABG, CVA. Extrinsic factors that delay wound healing: Immobility. Microbiology: Urine culture results negative. Endotracheal culture results in progress. Blood culture results 2 in progress. Wound Assessment: 1. Right cheek: Stage II pressure ulcer. Wound bed has 100% pink tissue. No odor, no drainage. Periwound has residual skin. Wound measures 1.1 cm x 0.7 cm, superficial depth. Skin appears to be very fragile, and breaks easily. Recommend: Cleanse wound with normal saline. Put sure prep onto periwound. Place oil emulsion dressing onto site. Cover with transparent dressing. Perform site care daily, and as needed for dressing soiling or dislodgement. Check site every 4 hours for signs of skin breakdown. If needed, have respiratory therapist adjust holster to keep holster off of involved area. Recommend place Optifoam Gentle Silicone dressing over cheek areas below involved areas (cut a small notch in dressing to offload right cheek wound), and have RT place tape to secure ET Tube over the silicone dressings instead of the ET Tube holster if the patient is not extubated. 2. Left cheek: Blanchable erythema. Skin appears to be very fragile, and can break easily. Recommend: Cleanse site with normal saline. Put sure prep onto periwound. Place foam dressing cut to size onto site. Cover with transparent dressing. Perform site care daily, and as needed for dressing soiling or dislodgement. Check site every 4 hours for signs of skin breakdown. If needed, have respiratory therapist adjust holster to keep holster off of involved area. Recommend place Optifoam Gentle Silicone dressing over cheek areas below involved areas, and have RT place tape to secure ET Tube over the silicone dressings instead of the ET Tube holster if the patient is not extubated. Also recommend continue: Reposition patient every 2 hours with pillow support and off-load pressure areas with pillows for pressure re-distribution. Offload, elevate and float bilateral heels with pillows. Perform skin care and monitor skin integrity Q shift. Use moisture barrier cream on buttocks and other moisture susceptible areas QID and as needed for soiling. Maintain patient on a low air-loss mattress.
--- NOTE | 2018-08-06 13:00 | NUR ---
CHG/BM CHG bath given, linens changed. Pt noted with large loose BM. Performed benito care. Applied moisture barrier cream to perineal area. Tolerated well.
[2018-08-06] MEDS: D5/0.45 NS 1,000 ML IV SCH (13:58)
[2018-08-06] MEDS ORDERED: POTASSIUM CHLORIDE 20 MEQ/PKT PACKET PO ONE (14:15)
--- NOTE | 2018-08-06 14:30 | NUR ---
Pt noted with large amount of loose BM. Performed benito care, linen and gown change.
--- NOTE | 2018-08-06 16:00 | NUR ---
Flexiseal inserted as ordered by Dr. Kapadia. Pt tolerated well. Noted liquid brown stool consistency. MD notified. Perineal hygiene provided and moisture barrier cream applied to bottom. Skin intact, warm and dry.
--- NOTE | 2018-08-06 16:06 | NUR ---
Nutrition F/U Admitting Diagnosis Aspiration pneumonia Reviewed Pertinent Medical/Surgical Hx Medical Record Patient Primary RN Medical History Comment: PMH: recent CVA, atr fibr, CABG, s/p PEG per nursing notes Pt also found w/ septic shock per MD notes 08/06/18 MD notes: sepsis, aspiration pneumonia, recent CVA, atr fibr, severe malnutrition Subjective Information Pt seen resting in bed, +Cpap to vent, w/ TF infusing at goal rate at time of RD visit. Per RN, pt has been tolerating TF well, 60 ml residuals this morning, and 40 ml residual this afternoon. Per EMR TF Intakes: 680 ml 08/06/18. Residuals: 80 ml 08/06/18. I/O: 250/110 (+140 ml) per 12 hours. Current TF regimen is adequate/appropriate. Current Diet Order/Nutrition Support Vital AF 1.2 at 75 ml/hr (goal rate), Free Water Flush: 150 ML Q6HR via GT x2 days Patient/Significant Other Unable To Verbalize Education Provided Not Indicated Pertinent Medications solu-cortef, D5%/NaCl IV, piperacillin/tazobactam IV Pertinent Labs BG 296 H, ALB 1.8 L, WBC 6.5 WNL (improved), Lactic acid 3 H (08/02/18), Hgb 10.8 L/32.7 L, K 3.3 L, BUN 22 H, CRE 1.35 H Height (Feet) 5 feet Height (Inches) 11.00 inches Weight (Pounds) 176 pounds (08/03/18) Weight (Calculated Kilograms) 79.397384 kilograms Patient Weight 79.832 kg Body Mass Index 24.54 kg/m2 %IBW 103 [place]/Adjusted Body Weight IBW: 172 lb, 78 kg Recent Weight Change Unable to verify Weight Status Appropriate Difficulty With: Chewing Swallowing Food Allergies Unable to verify Usual Diet At Home TF per nursing notes -- unable to locate in hard chart Skin Integrity Comment: Gonzalo scale: 15; per Director Emergency note 08/04/18: 1. Right cheek:Wound. 2. Left cheek: Blanchable erythema. Skin appears to be very fragile, and breaks easily. Estimated Energy Expenditure (kcals/day) 2007 kcal/day (PSU 2003b for REE for critical illness/vent support) Estimated Protein Required (g/day) 120-160 gm/day (1.5-2 gm/kg CBW for sepsis) Estimated Fluid Required (l/day) 2 L/day (25 ml/kg CBW for geriatric maintenance) Problem/Etiology/Signs/Symptoms Inadequate nutritional intakes related to metabolic demands as evidenced by NPO status and inability to meet optimal nutritional requirements. *improving w/ current EN support Expected Outcomes/Goals - Monitor advancement of diet, appetite, and PO intakes w/ goal of pt meeting at least 50% of estimated nutritional needs, labs trending WNL, normal GI function, and skin integrity/wt maintenance Dietitian Recommendations * Recommend continuing Vital AF 1.2 at 75 ml/hr (goal rate), Free Water Flush: 150 ML Q6HR via GT Provides: 2160 kcal/day, 135 gm protein/day, and 2060 ml free water/day Meets: 108% of estimated caloric needs and 113% of lower end of estimated protein needs Follow Up High Risk: F/U in 2-3 days Addendum: 08/06/18 at [address] Nutrition Consult received for Wound 08/04/181934.
--- NOTE | 2018-08-06 16:14 | NUR ---
Dietitian Recommendations * Recommend continuing Vital AF 1.2 at 75 ml/hr (goal rate), Free Water Flush: 150 ML Q6HR via GT Provides: 2160 kcal/day, 135 gm protein/day, and 2060 ml free water/day Meets: 108% of estimated caloric needs and 113% of lower end of estimated protein needs LP, RD Please refer to Nutrition F/U for details.
--- NOTE | 2018-08-06 18:30 | NUR ---
ET Tube removed. Pt tolerated well. Pt placed on NC on 3L. Respirations even and unlabored. Pt respiration of 18. O2 Saturation of 98%. Will continue to monitor.
--- NOTE | 2018-08-06 19:25 | NUR ---
PM SHIFT ASSESSMENT Pt is awake but confused and unable to make needs known. O2 via NC @ 3L, RR even and unlabored. Afib noted on the monitor. Harley catheter intact and draining to gravity. Flexiseal intact and draining to gravity. Gtube infusing tubefeeding, pt tolerating well. Bilateral wrist restraints in place, no skin issues noted. Safety precautions in place, will continue to monitor.
--- NOTE | 2018-08-06 19:30 | NUR ---
Closing/Endorsement Pt remains lethargic. Respirations even and unlabored on 3L O2 via NC. IV sites intact, patent, no infiltration noted. Bilateral soft wrist restraints in place, no skin breakdown noted. Flexiseal draining brown liquid stool. Harley in place with yellow urine. Bed locked in lowest position. Call light in reach. Endorsed plan of care to Kalee FRANCISCO.
[2018-08-06] MEDS: LEVOFLOXACIN 500 MG/D5W 100 ML IV SCH (20:33)
[2018-08-06] MEDS: ATORVASTATIN 20 MG TABLET GT SCH (21:53)
[2018-08-07] VITALS (24 sets, daily range): BP systolic 92–131
[2018-08-07] MEDS: IPRATROPIUM BROM 0.5 MG/2.5 ML VIAL.NEB (ATROVENT) INH SCH ×4 (01:02→19:32)
[2018-08-07] MEDS: ALBUTEROL SULFATE 0.083% 2.5 MG/3 ML VIAL.NEB INH SCH ×4 (01:02→19:32)
--- NOTE | 2018-08-07 01:20 | NUR ---
Pt resting in bed. No signs of SOB or acute distress noted. Will continue to monitor.
[2018-08-07] MEDS: HYDROCORTISONE SOD SUCC 100 MG/2 ML VIAL IVP SCH ×3 (06:02→21:17)
[2018-08-07] MEDS: PIPERACILLIN/TAZO 3.375/DEX-IS 50 ML IV SCH ×4 (06:02→23:35)
[2018-08-07 06:41] LABS: ALANINE AMINOTRANSFERASE 61 U/L (12-78); ALBUMIN 1.9 g/dL (3.4-4.8); ANION GAP 7 (5-15); ASPARTATE AMINOTRANSFERASE 24 U/L (10-37); CALCIUM 8.3 mg/dL (8.4-11.0); CHLORIDE 108 mmol/L (98-107); GLUCOSE 299 mg/dL (70-99); SODIUM SERUM 141 mmol/L (136-145); TOTAL BILIRUBIN 0.5 mg/dL (0.0-1.0); UREA NITROGEN, BLOOD 24 mg/dL (8-21)
[2018-08-07 07:03] LABS: BASOPHILS % (AUTO) 0.2 % (0.0-2.0); HEMATOCRIT 32.7 % (36-54); HEMOGLOBIN 10.5 g/dL (14.0-18.0); LYMPHOCYTES # (AUTO) 0.5 K/uL (1.0-5.5); LYMPHOCYTES % (AUTO) 6.3 % (20.5-51.5); MEAN CORPUSCULAR HEMOGLOBIN 28 pg (27-31); MEAN CORPUSCULAR HGB CONC 32 % (32-36); MEAN CORPUSCULAR VOLUME 88 fL (79.0-98.0); MONOCYTES # (AUTO) 0.4 K/uL (0.0-1.0); MONOCYTES % (AUTO) 4.8 % (1.7-9.3); NEUTROPHILS # (AUTO) 7.6 K/uL (1.8-7.7); NEUTROPHILS % (AUTO) 88.7 % (40.0-70.0); PLATELET COUNT (AUTO) 135 K/uL (130-430); RED BLOOD CELL COUNT(AUTO) 3.72 MIL/uL (4.2-6.2); WHITE BLOOD COUNT (AUTO) 8.5 K/uL (4.8-10.8)
--- NOTE | 2018-08-07 07:15 | NUR ---
ENDORSEMENT Pt care endorsed to MARYAM Mckeon at bedside using nursing SBAR.
--- NOTE | 2018-08-07 07:40 | NUR ---
AM ASSESSMENT. PT NON VERBAL, RESTLESS AT THIS HOUR, LEG DOWN TO THE SIDE OF THE BED, REPOSITIONED IN BED, RESTRAINTS OFF AND ON, FEEDING CONTINUE AT 75 ML PER HR VIA G TUBE, FLEXISEAL WITH LOOSE BROWN STOOL, AFEBRILE, WBC 8.5, BLOOD PRESSURE STABLE.
--- NOTE | 2018-08-07 07:50 | NUR ---
. DR Yomi BURT CAME TO SEE PT.
[2018-08-07] MEDS ORDERED: POTASSIUM CHLORIDE 20 MEQ in NS 250 ML IV ONE (08:45)
[2018-08-07] MEDS: TERAZOSIN HCL 1 MG CAPSULE (HYTRIN) GT SCH (08:53)
[2018-08-07] MEDS: PANTOPRAZOLE SODIUM 40 MG TAB GT SCH (08:56)
[2018-08-07] MEDS: ASPIRIN 81 MG TABLET(ECOTRIN) GT SCH (08:56)
[2018-08-07] MEDS: APIXABAN 2.5 MG TABLET GT SCH ×2 (08:57→21:18)
[2018-08-07] MEDS: METOPROLOL TARTRATE 25 MG TABLET GT SCH ×2 (08:59→21:19)
--- NOTE | 2018-08-07 08:59 | NUR ---
LOC. PT'S SON VISITING. PT HARDLY ABLE TO OPEN HIS EYES, JADIEL VIA G TUBE HELD, SON STATED "HE DOES NOT HAVE SEIZURES, HE HAD A STROKE IN ".
[2018-08-07] MEDS: LevETIRAcetam 100 MG/ML UDC ORAL LIQUID GT SCH (09:00)
--- NOTE | 2018-08-07 10:00 | NUR ---
HYGIENE. SKIN CARE DONE TO RIGHT CHEEK, MILD BLEEDING, OIL EMULSION APPLIED TO WOUND. BEDBATH WITH USE OF CHG WIPES TO BODY, LINEN CHANGED, MADE PT COMFORTABLE.
--- NOTE | 2018-08-07 10:30 | NUR ---
LAND ACQUISITION ANALYST. DR ARCE CAME IN AND EXAMINED PT. PT'S YONIS AT BEDSIDE, HER QUESTIONS ANSWERED BY MD. THEN WE REACHED PT'S SON MARÍA OVER THE PHONE AND TALKED TO DR ARCE WHILE IN THE STATION.
[2018-08-07] MEDS: D5/0.45 NS 1,000 ML IV SCH (13:58)
--- NOTE | 2018-08-07 17:20 | NUR ---
NEUROLOGIST. DR STRANGE CAME IN TO EXAMINE PT. CALLED UP PT'S SON MARÍA AND HE WAS ABLE TO TALK TO DR STRANGE.
--- NOTE | 2018-08-07 18:00 | NUR ---
TO CT SCAN TRANSPORTED PT VIA PORTABLE CARDIAC MONITORING WITH PORTABLE O2 IN USE.
--- NOTE | 2018-08-07 18:10 | NUR ---
TO ICU. BROUGHT PT BACK IN ROOM 5.
[2018-08-07] MEDS: LEVOFLOXACIN 500 MG/D5W 100 ML IV SCH (19:28)
--- NOTE | 2018-08-07 19:30 | NUR ---
PM ASSESSMENT REPORT RECEIVED FROM DEANGELO FRANCISCO. PT RECEIVED IN BED WITH EYES OPEN, CONFUSED, AND UNABLE TO VERBALIZE NEEDS. VSS, NO S/S OF DISTRESS NOTED. PT ON 3L NC, SAT 96%. A-FIB ON MONITOR. RFA 22G INFUSING D5 1/2 NS @ 40 CC/HR, L HAND 20G TO SL. BILATERAL SOFT-WRIST RESTRAINTS IN PLACE, NO S/S OF INJURY NOTED. G TUBE IN PLACE RUNNING VITAL AF TUBEFEEDING @ 75 CC/HR. GALARZA CATH IN PLACE DRAINING PINK-TINGED URINE TO GRAVITY. FLEXI-SEAL IN PLACE, DRAINING APPROPRIATELY. HOB ELEVATED, BED IN LOWEST POSITION, CALL LIGHT IN REACH. WILL CONTINUE TO MONITOR.
--- NOTE | 2018-08-07 19:50 | NUR ---
MD CALL DR. STRANGE MADE AWARE OF BRAIN CT RESULTS. NO NEW ORDERS LEFT AT THIS TIME. MD MADE AWARE OF PT GROWING INCREASINGLY RESTLESS, PER MD OKAY TO CONTINUE WITH ATIVAN PRN ORDERED. WILL CONTINUE TO MONITOR PT.
[2018-08-07] MEDS: LORazepam 2 MG/ML VIAL IVP PRN (19:51)
[2018-08-07] MEDS ORDERED: LevETIRAcetam 100 MG/ML UDC ORAL LIQUID GT SCH (21:00)
[2018-08-07] MEDS: ATORVASTATIN 20 MG TABLET GT SCH (21:17)
--- NOTE | 2018-08-07 21:40 | NUR ---
TUBE FEEDING HELD RESIDUAL 150 CC AT THIS TIME. TUBE FEEDING HELD PER ORDERS. WILL RECHECK RESIDUAL IN 1 HOUR. WILL CONTINUE TO MONITOR PT.
--- NOTE | 2018-08-07 22:40 | NUR ---
IV SITE L HAND IV SITE SHOWING S/S INFILTRATION. IV SITE REMOVED, CATHETER INTACT, AND PRESSURE APPLIED TO IV SITE. NO ACTIVE BLEEDING NOTED AFTER APPLICATION OF PRESSURE. PT TOLERATED WELL.
--- NOTE | 2018-08-07 22:45 | NUR ---
TUBE-FEEDING RESTARTED RESIDUAL RECHECKED AT THIS TIME AND FOUND TO BE 30 CC. TUBEFEEDING RESTARTED AT 75 CC/HR PER ORDERS. WILL CONTINUE TO MONITOR PT RESIDUAL.
[2018-08-08] VITALS (25 sets, daily range): BP systolic 109–139
--- NOTE | 2018-08-08 | NUR ---
RN ROUNDS PT RESTING IN BED WITH EYES OPEN. BREATHING IS EVEN AND UNLABORED ON 3L NC. VSS, NO S/S OF DISTRESS NOTED. PT REPOSITIONED AND MADE COMFORTABLE AT THIS TIME. WILL CONTINUE TO MONITOR PT.
[2018-08-08] MEDS: IPRATROPIUM BROM 0.5 MG/2.5 ML VIAL.NEB (ATROVENT) INH SCH ×4 (01:39→19:31)
[2018-08-08] MEDS: ALBUTEROL SULFATE 0.083% 2.5 MG/3 ML VIAL.NEB INH SCH ×4 (01:39→19:31)
[2018-08-08 05:12] LABS: ALANINE AMINOTRANSFERASE 57 U/L (12-78); ANION GAP 4 (5-15); ASPARTATE AMINOTRANSFERASE 27 U/L (10-37); CALCIUM 7.9 mg/dL (8.4-11.0); CHLORIDE 106 mmol/L (98-107); GLUCOSE 241 mg/dL (70-99); SODIUM SERUM 139 mmol/L (136-145); TOTAL BILIRUBIN 0.6 mg/dL (0.0-1.0); UREA NITROGEN, BLOOD 23 mg/dL (8-21)
[2018-08-08] MEDS: PIPERACILLIN/TAZO 3.375/DEX-IS 50 ML IV SCH ×4 (05:13→23:10)
[2018-08-08] MEDS: HYDROCORTISONE SOD SUCC 100 MG/2 ML VIAL IVP SCH ×3 (05:13→21:18)
--- NOTE | 2018-08-08 05:15 | NUR ---
RN ROUNDS PT RESTING IN BED WITH EYES OPEN, VSS, NO S/S OF DISTRESS NOTED. PT REPOSITIONED AND MADE COMFORTABLE, LINENS CHANGED. RESIDUAL RECHECKED, 5 CC AT THIS TIME. WILL CONTINUE TO MONITOR PT.
[2018-08-08 05:18] LABS: POTASSIUM 2.5 mmol/L (3.5-5.1)
[2018-08-08 05:28] LABS: HEMATOCRIT 31.5 % (36-54); HEMOGLOBIN 10.6 g/dL (14.0-18.0); MEAN CORPUSCULAR HEMOGLOBIN 29 pg (27-31); MEAN CORPUSCULAR HGB CONC 34 % (32-36); MEAN CORPUSCULAR VOLUME 87 fL (79.0-98.0); RED BLOOD CELL COUNT(AUTO) 3.61 MIL/uL (4.2-6.2); WHITE BLOOD COUNT (AUTO) 7.8 K/uL (4.8-10.8)
[2018-08-08 05:29] LABS: BASOPHILS % (AUTO) 0.1 % (0.0-2.0); EOSINOPHILS % (AUTO) 0.2 % (0.0-4.0); LYMPHOCYTES % (AUTO) 12.8 % (20.5-51.5); MONOCYTES # (AUTO) 0.4 K/uL (0.0-1.0); MONOCYTES % (AUTO) 4.7 % (1.7-9.3); NEUTROPHILS # (AUTO) 6.3 K/uL (1.8-7.7); NEUTROPHILS % (AUTO) 82.3 % (40.0-70.0); PLATELET COUNT (AUTO) 122 K/uL (130-430); RED CELL DISTRIBUTION WIDTH 17.1 % (9.0-15.0)
--- NOTE | 2018-08-08 05:35 | NUR ---
Paged Dr. Kapadia to report critical lab results. stated to page transition nurse [facility] hospitalist for orders.
--- NOTE | 2018-08-08 05:40 | NUR ---
Paged Dr. Yee for critical lab results, waiting for MD orders. Spoke to Jena for investigation division sergeant [facility] hospitalist. Will continue to monitor.
--- NOTE | 2018-08-08 06:05 | NUR ---
Second page for Dr. Yee for critical lab results, waiting for MD orders. Spoke to Adrien. Will continue to monitor.
--- NOTE | 2018-08-08 06:22 | NUR ---
MD PAGE THIRD PAGE OUT TO DR. NICHOLSON TO REPORT CRITICAL LAB VALUES. AWAITING MD CALL BACK. WILL CONTINUE TO MONITOR PT.
--- NOTE | 2018-08-08 06:26 | NUR ---
MD CALL BACK DR. NICHOLSON MADE AWARE OF PTS K 2.5. ORDERS RECEIVED AND WILL BE CARRIED OUT ORDERED.
[2018-08-08] MEDS ORDERED: KCL 20 mEq in 100 mL (PREMIX) 100 ML IV ONE ×2 (06:30→06:49)
--- NOTE | 2018-08-08 07:17 | NUR ---
ENDORSEMENT BEDSIDE REPORT GIVEN TO JLUIS FRANCISCO USING SBAR APPROACH.
--- NOTE | 2018-08-08 07:21 | NUR ---
PATIENT OPENS EYES, TRACKS OCCASIONALLY. ON 3 LITERS, SATTING AT 94%. A-FIB/ AFLUTTER ON MONITOR, HR AT 110-120S. ON BILAT WRIST RESTRAINTS. RADIAL PULSES ARE STRONG, CAPILLARY REFILL < 3 SECONDS. WHEEZES AND RHONCHI ARE AUDIBLE OVER THE UPPER LUNG GORDON, DIMINISHES ON THE BASES. ON GT, RUNNING AT VITAL AF AT 75ML/HR. BOWELS ARE ARE PRESENT OVER ALL QUADRANTS. PEDAL PULSES PALPABLE ON BOTH FEET, LEFT STRONGER THAN THE RIGHT. HAS FLEXISEAL, DRAINING BROWN LIQUID STOOL. F/C IS IN PLACE. CALL LIGHT IN PLACE, BED LOCKED AT THE LOWEST POSITION, WILL CONTINUE TO MONITOR.
--- NOTE | 2018-08-08 07:53 | NUR ---
Paged Dr. Sarah, spoke with exchange. Waiting for call back.
[2018-08-08] MEDS: PANTOPRAZOLE SODIUM 40 MG TAB GT SCH (08:06)
[2018-08-08] MEDS: TERAZOSIN HCL 1 MG CAPSULE (HYTRIN) GT SCH (08:06)
[2018-08-08] MEDS: METOPROLOL TARTRATE 25 MG TABLET GT SCH (08:07)
[2018-08-08] MEDS: APIXABAN 2.5 MG TABLET GT SCH ×2 (08:07→21:19)
[2018-08-08] MEDS: ASPIRIN 81 MG TABLET(ECOTRIN) GT SCH (08:07)
--- NOTE | 2018-08-08 08:20 | NUR ---
Dr. Sarah return call, new orders made and carried out.l
--- NOTE | 2018-08-08 08:29 | NUR ---
Paged Dr. Carroll, spoke with kalen Luna. Waiting for call back.
[2018-08-08] MEDS ORDERED: DILTIAZEM HCL 25 MG/5 ML VIAL IVP ONE ×2 (08:30→16:30)
--- NOTE | 2018-08-08 08:48 | NUR ---
ANIL, THE DAUGHTER OF THE PATIENT, CALLS IN. PATIENT'S CURRENT CONDITIONS AND POC ARE INFORMED TO HER.
--- NOTE | 2018-08-08 09:21 | NUR ---
PATIENT IS TURNED AND REPOSITIONED FOR COMFORT. NO SIGNS OF DISTRESS NOTED.
--- NOTE | 2018-08-08 10:30 | NUR ---
CHG bath given. Pt changed and clean. no skin break down noted. pt turned to left side.
[2018-08-08] MEDS: D5/0.45 NS 1,000 ML IV SCH (12:00)
--- NOTE | 2018-08-08 12:15 | NUR ---
Pt gt gauze changed. 150 mL flush given via GT given. Vital AF 1.2 hung. Pt tolerating well. no residual noted.
[2018-08-08 13:01] LABS: ANION GAP 19 (5-15); CHLORIDE 94 mmol/L (98-107); CREATININE 1.55 mg/dL (0.55-1.30); SODIUM SERUM 138 mmol/L (136-145); UREA NITROGEN, BLOOD 19 mg/dL (8-21)
[2018-08-08 13:24] LABS: POTASSIUM 2.5 mmol/L (3.5-5.1)
[2018-08-08 13:26] LABS: GLUCOSE 687 mg/dL (70-99)
[2018-08-08] MEDS: INSULIN REGULAR, HUMAN 100 UNITS/ML, 10 ML VIAL (novoLIN R) SUBCUT PRN ×3 (13:59→23:14)
[2018-08-08] MEDS ORDERED: DEXTROSE 50%-WATER 50 ML DISP.SYRIN IVP PRN ×2 (14:00)
[2018-08-08] MEDS ORDERED: GLUCOSE 15 GM GEL (in 37.5 GM TUBE) PO PRN ×2 (14:00)
--- NOTE | 2018-08-08 14:00 | NUR ---
GLUCOSE. Pt glucose 223mg/dL. Given 4 units of reg. insulin in abdomen.
[2018-08-08] MEDS ORDERED: POTASSIUM CHLORIDE 40 MEQ in NS 250 ML IV ONE (14:30)
--- NOTE | 2018-08-08 16:15 | NUR ---
WOUND Replaced dressing on right cheek. cleansed with NS, pat dry, applied oil emulsion.
--- NOTE | 2018-08-08 17:00 | NUR ---
PT ROUNDS Pt laying in bed, less lethargic and easily aroused. Responding to verbal and tactile stimuli. HR trending in the 130-140s. Cardizem IVP given @1650. Pt tolerated well. Pt respirations of 21, even and labored. NC @ 3L. O2 Sat of 91%. No signs of distress or discomfort. will continue to monitor.
--- NOTE | 2018-08-08 19:20 | NUR ---
ENDORSEMENT Report given to Jena FRANCISCO at bedside using SBAR approach
--- NOTE | 2018-08-08 19:30 | NUR ---
PM ASSESSMENT REPORT RECEIVED FROM LIZETH FRANCISCO. PT RECEIVED IN BED WITH EYES OPEN, UNABLE TO VERBALIZE NEEDS, AND RESPONDING TO TACTILE STIMULATION. VSS, NO S/S OF DISTRESS NOTED. PT ON 3L NC, SAT 95%. A-FIB ON MONITOR. RFA 22G INFUSING D5 1/2 NS @ 40 CC/HR, R HAND 22G TO SL. BILATERAL SOFT WRIST RESTRAINTS IN PLACE, NO S/S OF INJURY NOTED. GTUBE RUNNING VITAL AF @ 75 CC/HR. GALARZA CATH IN PLACE DRAINING YELLOW URINE TO GRAVITY. FLEXISEAL DRAINING LOOSE BROWN STOOL. HOB ELEVATED, BED IN LOWEST POSITION, CALL LIGHT IN REACH. WILL CONTINUE TO MONITOR.
[2018-08-08] MEDS: LEVOFLOXACIN 500 MG/D5W 100 ML IV SCH (20:34)
[2018-08-08] MEDS: METOPROLOL TARTRATE 50 MG TABLET GT SCH (21:18)
[2018-08-08] MEDS: traZODone HCL 50 MG TABLET (DESYREL) GT SCH (21:18)
[2018-08-08] MEDS: ATORVASTATIN 20 MG TABLET GT SCH (21:19)
[2018-08-09] VITALS (24 sets, daily range): BP systolic 92–155
[2018-08-09] MEDS: IPRATROPIUM BROM 0.5 MG/2.5 ML VIAL.NEB (ATROVENT) INH SCH ×4 (00:01→23:22)
[2018-08-09] MEDS: ALBUTEROL SULFATE 0.083% 2.5 MG/3 ML VIAL.NEB INH SCH ×2 (00:01→07:25)
[2018-08-09] MEDS: LORazepam 2 MG/ML VIAL IVP PRN ×2 (00:23→23:09)
--- NOTE | 2018-08-09 00:31 | NUR ---
RN ROUNDS PT GROWING INCREASINGLY RESTLESS, PT KICKING AND FLAILING ARMS WHILE TRYING TO GET OUT OF BED. HR 152. PT GIVEN ATIVAN PER ORDERS. PT REPOSITIONED AND MADE COMFORTABLE. BILATERAL SOFT WRIST RESTRAINTS IN PLACE, NO S/S OF INJURY NOTED. WILL CONTINUE TO MONITOR PT.
--- NOTE | 2018-08-09 04:10 | NUR ---
RN ROUNDS PT LINENS CHANGED, SKIN CARE AND GALARZA CATH CARE GIVEN. PT REPOSITIONED IN BED AT THIS TIME AND MADE COMFORTABLE. VSS, NO S/S OF DISTRESS NOTED. BREATHING IS EVEN AND UNLABORED ON 3L NC. WILL CONTINUE TO MONITOR PT.
[2018-08-09] MEDS: PIPERACILLIN/TAZO 3.375/DEX-IS 50 ML IV SCH ×4 (05:11→23:13)
[2018-08-09] MEDS: HYDROCORTISONE SOD SUCC 100 MG/2 ML VIAL IVP SCH ×2 (05:11→20:05)
[2018-08-09] MEDS: METOPROLOL TARTRATE 50 MG TABLET GT SCH ×3 (05:12→21:17)
[2018-08-09] MEDS: INSULIN REGULAR, HUMAN 100 UNITS/ML, 10 ML VIAL (novoLIN R) SUBCUT PRN ×4 (05:14→23:18)
[2018-08-09 06:40] LABS: ANION GAP 8 (5-15); CHLORIDE 105 mmol/L (98-107); CREATININE 1.16 mg/dL (0.55-1.30); GLUCOSE 199 mg/dL (70-99); SODIUM SERUM 142 mmol/L (136-145); UREA NITROGEN, BLOOD 19 mg/dL (8-21)
[2018-08-09 06:48] LABS: BASOPHILS % (AUTO) 0.1 % (0.0-2.0); EOSINOPHILS # (AUTO) 0.1 K/uL (0.0-0.4); EOSINOPHILS % (AUTO) 0.8 % (0.0-4.0); HEMATOCRIT 32.5 % (36-54); HEMOGLOBIN 10.7 g/dL (14.0-18.0); LYMPHOCYTES # (AUTO) 1.2 K/uL (1.0-5.5); MEAN CORPUSCULAR HEMOGLOBIN 29 pg (27-31); MEAN CORPUSCULAR HGB CONC 33 % (32-36); MEAN CORPUSCULAR VOLUME 89 fL (79.0-98.0); MONOCYTES # (AUTO) 0.5 K/uL (0.0-1.0); MONOCYTES % (AUTO) 5.2 % (1.7-9.3); NEUTROPHILS # (AUTO) 7.4 K/uL (1.8-7.7); NEUTROPHILS % (AUTO) 80.9 % (40.0-70.0); PLATELET COUNT (AUTO) 133 K/uL (130-430); RED BLOOD CELL COUNT(AUTO) 3.65 MIL/uL (4.2-6.2); RED CELL DISTRIBUTION WIDTH 17.4 % (9.0-15.0); WHITE BLOOD COUNT (AUTO) 9.2 K/uL (4.8-10.8)
[2018-08-09 07:01] LABS: ALANINE AMINOTRANSFERASE 50 U/L (12-78); ASPARTATE AMINOTRANSFERASE 31 U/L (10-37); TOTAL BILIRUBIN 0.8 mg/dL (0.0-1.0)
--- NOTE | 2018-08-09 07:06 | NUR ---
ENDORSEMENT BEDSIDE REPORT GIVEN TO JONNY FRANCISCO USING SBAR APPROACH.
[2018-08-09 07:12] LABS: POTASSIUM 2.4 mmol/L (3.5-5.1)
--- NOTE | 2018-08-09 07:30 | NUR ---
AM ASSSESSMENT Pt laying in bed. Eyes open. Pt able to track movement with eyes, but unable to communicate. Easily aroused by verbal and tactile stimuli. Breath sounds clear in upper left lobe. Wheezing heard on right upper lobe. Lung sounds clear on bilateral bases of lungs. Respirations in the low 20s. Pt O2 Sat in the low 90s. On NC @ 3L. No signs of distress noted. A-Fib on monitor. Pt Hr in the 120-130s. RFA 22g running D5 1/2 NS at 40 mL/Hr. R hand 22g SL. Pt GT running vital AF @ 75mL/hr. Bowel sounds present and active in all quadrants. Harley cath in place draining yellow urine to gravity. Flexiseal in place draining loose brown stool. Call light in reach. Will continue to monitor.
[2018-08-09] MEDS ORDERED: POTASSIUM CHLORIDE 30 MEQ in NS 250 ML IV STA (07:35)
--- NOTE | 2018-08-09 07:35 | NUR ---
RT NOTES FIO2 to 30% per ABG results & titration order. No adverse reactions noted. Will monitor pt.
--- NOTE | 2018-08-09 07:41 | NUR ---
Consult GI: Dr. Gu called spoke to maria l dialed [phone] Kapadia
[2018-08-09] MEDS ORDERED: LOPERAMIDE HCL 2 MG/10 ML UDC GT PRN (07:45)
[2018-08-09] MEDS: PANTOPRAZOLE SODIUM 40 MG TAB GT SCH (08:13)
[2018-08-09] MEDS: ASPIRIN 81 MG TABLET(ECOTRIN) GT SCH (08:13)
[2018-08-09] MEDS: APIXABAN 2.5 MG TABLET GT SCH ×2 (08:15→20:07)
[2018-08-09] MEDS: TERAZOSIN HCL 1 MG CAPSULE (HYTRIN) GT SCH (08:17)
--- NOTE | 2018-08-09 09:30 | NUR ---
POTASSIUM LAB value of 2.4. Potassium Chloride 30 MEQ in NS 250 mL. Given at 0910. Pt tolerating well. IV site intact, no signs of infiltration noted.
--- NOTE | 2018-08-09 11:32 | NUR ---
Nutrition F/U Admitting Diagnosis Aspiration pneumonia Reviewed Pertinent Medical/Surgical Hx Medical Record Patient Primary RN Medical History Comment: PMH: recent CVA, atr fibr, CABG, s/p PEG per nursing notes Pt also found w/ septic shock per MD notes 08/09/18 MD notes: sepsis, aspiration pneumonia, recent CVA, atr fibr, severe malnutrition Subjective Information Pt seen resting in bed, +nasal cannula, w/ TF infusing at goal rate at time of RD visit. RN reported that pt continues to tolerate TF well, less than 5 ml residual this morning. Pt has a flexiseal w/ a lot of liquid output today, and plans to start pt on imodium today per RN. Per EMR TF Intakes: 750 ml 08/09/18. Residuals: 30 ml 08/09/18. Output (stool): 575 ml (08/09/18). I/O: 230/500 (-270 ml) per 12 hours. Current TF regimen is adequate/appropriate. Current Diet Order/Nutrition Support Vital AF 1.2 at 75 ml/hr (goal rate), Free Water Flush: 150 ML Q6HR via GT x5 days Patient/Significant Other Unable To Verbalize Education Provided Not Indicated Pertinent Medications SSI, imodium Pertinent Labs BG 199 H, POC BG 193 H, ALB 2 L, Lactic acid 3 H (08/02/18), H/H 10.7 L/32.5 L, K 2.4 L, BUN 19 WNL (improved), CRE 1.16 WNL (improved) Height (Feet) 5 feet Height (Inches) 11.00 inches Weight (Pounds) 176 pounds (08/03/18) Weight (Calculated Kilograms) 79.871087 kilograms Patient Weight 79.832 kg Body Mass Index 24.54 kg/m2 BEDSCALE WT: 183 lb (08/09/18) %IBW 103 [place]/Adjusted Body Weight IBW: 172 lb, 78 kg Recent Weight Change Unable to verify Weight Status Appropriate Difficulty With: Chewing Swallowing Food Allergies Unable to verify Usual Diet At Home TF per nursing notes -- unable to locate in hard chart Skin Integrity Comment: Gonzalo scale: 15; per Bottom Saw Operator note 08/06/18: 1. Right cheek: stage 2 PU. 2. Left cheek: Blanchable erythema. Skin appears to be very fragile, and breaks easily. Per nursing notes, pt also has some discoloration to R toe and dry scab to R elbow. NEW Estimated Energy Expenditure (kcals/day) 6857-3074 kcal/day (30-35 kcal/kg CBW for sepsis, acute state) Estimated Protein Required (g/day) 120-160 gm/day (1.5-2 gm/kg CBW for sepsis) Estimated Fluid Required (l/day) 2 L/day (25 ml/kg/day CBW for geriatric maintenance) Problem/Etiology/Signs/Symptoms Inadequate nutritional intakes related to metabolic demands as evidenced by NPO status and inability to meet optimal nutritional requirements. *improving w/ current EN support Expected Outcomes/Goals - Monitor advancement of diet, appetite, and PO intakes w/ goal of pt meeting at least 50% of estimated nutritional needs, labs trending WNL, normal GI function, and skin integrity/wt maintenance Dietitian Recommendations * Recommend continuing Vital AF 1.2 at 75 ml/hr (goal rate), Free Water Flush: 150 ML Q6HR via GT Provides: 2160 kcal/day, 135 gm protein/day, and 2060 ml free water/day Meets: 90% of estimated caloric needs and 113% of lower end of estimated protein needs Follow Up High Risk: F/U in 2-3 days
--- NOTE | 2018-08-09 11:39 | NUR ---
Dietitian Recommendations * Recommend continuing Vital AF 1.2 at 75 ml/hr (goal rate), Free Water Flush: 150 ML Q6HR via GT Provides: 2160 kcal/day, 135 gm protein/day, and 2060 ml free water/day Meets: 90% of estimated caloric needs and 113% of lower end of estimated protein needs LP, RD Please refer to Nutrition F/U for details.
--- NOTE | 2018-08-09 12:30 | NUR ---
PT Round/Update Pt remains in bed. No signs of distress. Pt more awake, but still confused at this time. Pt able to open eyes and track movement. Pt making incomprehensible speech. Will continue to monitor.
--- NOTE | 2018-08-09 13:13 | NUR ---
Discharge Planning: DCP faxed order to Krystyna at [facility] (f [phone] p [phone]).
[2018-08-09] MEDS ORDERED: POTASSIUM CHLORIDE 30 MEQ in NS 250 ML IV ONE (14:15)
[2018-08-09] MEDS: LevALBUTEROL HCL 1.25 MG/0.5 ML *CONC.* VIAL.NEB (XOPENEX CONC.) INH SCH ×2 (15:23→23:22)
--- NOTE | 2018-08-09 17:00 | NUR ---
RN Round Pt in bed. Remains alert but confused at this time. Continuing to make incomprehensible speech. No signs of distress noted. CHG bath given. Bed locked and in lowest position. Will continue to monitor.
[2018-08-09] MEDS ORDERED: LACTOBACILLUS RHAMNOSUS GG 1 CAP CAPSULE GT ONE (19:00)
--- NOTE | 2018-08-09 19:20 | NUR ---
Endorsement Report given to Jacob FRANCISCO at bedside via SBAR approach.
--- NOTE | 2018-08-09 19:30 | NUR ---
TRANSFER OF CARE Received report from AM shift RN, Pt in bed non verbal and able to track visually. AFIB on the monitor with HR 130's. O2 saturation at 94% with nasal cannula at 3L. IV on the right forearm noted and on the right hand 22G each patent and no infiltration noted. Bilateral wrist restraint in placed with good circulation and no redness noted on the site. Harley catheter in placed draining clear yellow urine to gravity. Flexiseal in placed draining liquid brown stool. No acute distress at this time. Safety precaution observed. Will continue to monitor Pt.
[2018-08-09] MEDS: DILTIAZEM HCL 25 MG/5 ML VIAL IVP PRN ×2 (19:39→23:54)
--- NOTE | 2018-08-09 19:40 | NUR ---
HEART RATE Pt's heart rate at 130's, will give cardizem IV push as per MD order. Will continue to monitor HR and blood pressure.
[2018-08-09] MEDS: LACTOBACILLUS RHAMNOSUS GG 1 CAP CAPSULE GT SCH (20:06)
[2018-08-09] MEDS: ATORVASTATIN 20 MG TABLET GT SCH (20:07)
[2018-08-09] MEDS: traZODone HCL 50 MG TABLET (DESYREL) GT SCH (20:07)
[2018-08-09] MEDS: MESALAMINE 400 MG CAPSULE.DR GT SCH (20:08)
--- NOTE | 2018-08-09 23:50 | NUR ---
AGITATED AND RESTLESS Pt is hanging his legs out of the bed and being agitated, ativan given as per MD order. Will continue to monitor respiratory status.
[2018-08-10] VITALS (14 sets, daily range): BP systolic 98–130
--- NOTE | 2018-08-10 | NUR ---
COUNTER HAND Pt in bed, no acute distress at this time. Will continue to monitor Pt.
[2018-08-10] MEDS: LORazepam 2 MG/ML VIAL IVP PRN (04:47)
[2018-08-10] MEDS: PIPERACILLIN/TAZO 3.375/DEX-IS 50 ML IV SCH ×4 (05:16→23:47)
[2018-08-10] MEDS: METOPROLOL TARTRATE 50 MG TABLET GT SCH ×3 (05:16→21:39)
[2018-08-10] MEDS: INSULIN REGULAR, HUMAN 100 UNITS/ML, 10 ML VIAL (novoLIN R) SUBCUT PRN ×4 (05:23→23:49)
[2018-08-10 06:23] LABS: ANION GAP 4 (5-15); CALCIUM 8.3 mg/dL (8.4-11.0); CHLORIDE 108 mmol/L (98-107); CREATININE 1.32 mg/dL (0.55-1.30); GLUCOSE 202 mg/dL (70-99); POTASSIUM 3.9 mmol/L (3.5-5.1); SODIUM SERUM 144 mmol/L (136-145); UREA NITROGEN, BLOOD 22 mg/dL (8-21)
--- NOTE | 2018-08-10 06:35 | NUR ---
CLOSING NOTES Pt in bed no acute distress at this time. Will give report to oncoming RN via SBAR.
[2018-08-10] MEDS: LevALBUTEROL HCL 1.25 MG/0.5 ML *CONC.* VIAL.NEB (XOPENEX CONC.) INH SCH ×3 (07:18→23:46)
[2018-08-10] MEDS: IPRATROPIUM BROM 0.5 MG/2.5 ML VIAL.NEB (ATROVENT) INH SCH ×3 (07:18→23:45)
--- NOTE | 2018-08-10 07:30 | NUR ---
AM ASSESSMENT Pt laying in bed awake but confused at this time. Pt is making incomprehensible speech. Pt is easily aroused by verbal and tactile stimuli. Breath sounds clear in upper left lobe, but wheezing heard in right upper lobe. Wheezing heard in bilateral lobe bases. Respiration even and labored in the low 20s. O2 saturations in the low to mid 90s. Pt on NC @ 3L. A-Fib shown on monitor. HR remains in the low 120s. RFA 22g SL. R Hand 22g SL. Pt GT running Vital AF 1.2 @75mL/hr. <5 mL of residual noted. Bowel sounds present and active in all four quadrants. Harley catheter in place draining yellow urine to gravity. Flexiseal in place draining browBn liquid stool. Bed in locked and in lowest position. Call light in reach. Will continue to monitor.
[2018-08-10] MEDS: TERAZOSIN HCL 1 MG CAPSULE (HYTRIN) GT SCH (08:32)
[2018-08-10] MEDS: LACTOBACILLUS RHAMNOSUS GG 1 CAP CAPSULE GT SCH ×2 (08:33→21:41)
[2018-08-10] MEDS: HYDROCORTISONE SOD SUCC 100 MG/2 ML VIAL IVP SCH ×2 (08:34→21:38)
[2018-08-10] MEDS: PANTOPRAZOLE SODIUM 40 MG TAB GT SCH (08:34)
[2018-08-10] MEDS: ASPIRIN 81 MG TABLET(ECOTRIN) GT SCH (08:34)
[2018-08-10] MEDS: APIXABAN 2.5 MG TABLET GT SCH ×2 (08:36→21:43)
--- NOTE | 2018-08-10 10:30 | NUR ---
Telemetry Pt is now telemetry status. Waiting on bed assignment.
[2018-08-10] MEDS: MESALAMINE 400 MG CAPSULE.DR GT SCH (11:15)
--- NOTE | 2018-08-10 13:30 | NUR ---
TO [facility]. TRANSFERRED CARE TO MARYAM BROWN, TRANSPORTED TO ROOM 112-A TELEMETRY STATUS, VIA CARDIAC MONITORING, ACCOMPANIED BY HIS .
--- NOTE | 2018-08-10 13:35 | NUR ---
Transfer of Care: Patient arrived on Telemetry. Received report from Linda FRANCISCO. Vital signs stable, BP 117/74, HR 107, O2 sat 98% on room air. Patient resting with eyes closed, arouses to stimuli. Patient has garbled speech. Breathing is even and unlabored with no distress noted. No signs of pain or discomfort. Iv patent and intact. Bilateral wrist restraints in place, no signs of circulation problems, palpable radial pulses. Harley catheter patent and intact draining to gravity, urine output visible. Flexiseal intact, visible stool output. Patient on LUZ mattress. G-tube patent and intact with Vital AF running @ 75 ml/hr. No residual. Patent tolerating feeding well. No needs at this time. Will continue to monitor.
--- NOTE | 2018-08-10 16:11 | NUR ---
Social Service Note: BACK UP WORKER received call from pt's dtr, Karen Shane ([phone]); Karne had questions about the order for hospice evaluation. BACK UP WORKER spoke with pt's dtr about hospice care and explained services. BACK UP WORKER also provided pt's dtr with contact information for Krystyna, unemployment insurance director, to discuss if the hospice evaluation has been ordered. BACK UP WORKER will remain available for support and will follow up as needed.
[2018-08-10] MEDS: NACL 0.9% 250 ML IV SCH (16:12)
--- NOTE | 2018-08-10 16:15 | NUR ---
Rounds: Patient laying in bed resting. Repositioned for comfort. No pain or discomfort noted. IV fluids running per MD order, no signs of infiltration. No SOB or respiratory distress noted. Safety precautions in place and call light within reach. Will continue to monitor.
--- NOTE | 2018-08-10 17:48 | NUR ---
Accucheck: Blood sugar 153, covered with 2 units Novolin R per sliding scale.
--- NOTE | 2018-08-10 18:43 | NUR ---
Closing Note: Patient resting with eyes closed, arouses to stimuli. Breathing is even and unlabored with no distress noted. No signs of pain or discomfort. IV patent and intact. Bilateral wrist restraints in place, no signs of circulation problems, palpable radial pulses. Harley catheter patent and intact draining to gravity, urine output visible. Flexiseal intact, visible stool output. Patient on LUZ mattress. G-tube patent and intact with Vital AF running @ 75 ml/hr. Aspiration precautions in place. Safety precautions in place; bed in lowest position, wheels locked, bed alarm activated and call light within reach. All needs met. Will endorse plan of care to NOC, nurse.
--- NOTE | 2018-08-10 20:00 | NUR ---
Initial PM Note Pt was received lying in bed fully awake, alert and oriented x4. No acute distress noted at this time. VSS and pt is afebrile. IVF of NS is infusing well in RAC at 100ml/hr without any signs of infiltration. Fall and safety precautions are in place. Call light is with pt and bed alarm is on. Will continue to monitor pt. Addendum: 08/10/18 at 2102 by Anayeli Hogan RN Please disregard. Wrong Pt note.
--- NOTE | 2018-08-10 20:00 | NUR ---
Initial PM Note Pt was received lying in bed fully awake and oriented to his name only. Pt is confused and no verbal response noted. No acute distress noted at this time. VSS and pt is afebrile. IVF of NS is infusing well in RH at 10ml/hr without any signs of infiltration. GTF of Vital AF 1.2 is infusing well at 75ml/hr with less than 5ml residual. HOB is elevated 45 degrees to prevent aspiration. Rectal tube to gravity drainage noted with liquid brownish stool. Harley Cath to gravity drainage is draining clear yellowish urine. Bilateral soft wrist restraints are on and no circulatory impairment noted. Fall and safety precautions are in place. Call light is with pt and bed alarm is on. Will continue to monitor pt.
[2018-08-10] MEDS: ATORVASTATIN 20 MG TABLET GT SCH (21:38)
[2018-08-10] MEDS: MESALAMINE 250 MG CAPSULE.SA GT SCH (21:42)
[2018-08-10] MEDS: traZODone HCL 50 MG TABLET (DESYREL) GT SCH (21:43)
--- NOTE | 2018-08-10 22:00 | NUR ---
Rounds Pt remains confused and disoriented. No acute distress noted at this time. IVF and GTF are infusing well. Will continue to monitor pt.
--- NOTE | 2018-08-10 23:30 | NUR ---
Report Report was given to Nurse Venegas for continuity of pt's nursing care.
--- NOTE | 2018-08-10 23:35 | NUR ---
RECEIVED PT RECEIVED PT AND REPORT. PT CURRENTLY RESTING IN BED. PT ON 2 L NASAL CANULA. IV INTACT AND RUNNING IVF PER ORDERS. G TUBE IN PLACE RUNNING TUBE FEEDING PER ORDERS. GALARZA CATHETER DRAINING YELLOW URINE VIA GRAVITY. FLEXI SEAL IN PLACE DRAINING LOOSE BROWN STOOL. FALL AND SAFETY PRECAUTIONS IN PLACE. BED LOCKED IN LOWEST POSITION. BED ALARM ON. CALL LIGHT WITH PT. WILL CONTINUE TO MONITOR.
--- NOTE | 2018-08-10 23:47 | NUR ---
MEDICATION ADMINISTRATION/ TUBE FEEDING ADMINISTERED MEDICATION PER ORDERS. ADMINISTERED NEW BAG OF TUBE FEEDING PER ORDERS .
[2018-08-11 00:12] VITALS: BP_SYST 120
--- NOTE | 2018-08-11 00:30 | NUR ---
FLEXI SEAL INSERTION FLEX SEAL LEAKING. NEW INSERTION OF FLEXI SEAL. PT TOLERATED WELL. INCONTINENCE CARE PROVIDED. WILL CONTINUE TO MONITOR.
--- NOTE | 2018-08-11 00:40 | NUR ---
EMPTIED STOOL EMPTIED 400 ML OF LOOSE STOOL, UPON INSERTION OF NEW FLEXI SEAL.
[2018-08-11] MEDS: NACL 0.9% 250 ML IV SCH (00:42)
[2018-08-11] MEDS: LORazepam 2 MG/ML VIAL IVP PRN ×3 (01:09→09:32)
--- NOTE | 2018-08-11 01:09 | NUR ---
ATIVAN ADMINISTERED PRN ATIVAN FOR AGITATION. PT ATTEMPTING TO GET OUT OF BED AND PULLING ON GALARZA CATHETER. WILL MONITOR PT CLOSELY.
--- NOTE | 2018-08-11 03:15 | NUR ---
ROUNDING NOTE PT AWAKE IN BED. PT APPEARS RESTLESS. WILL CONTINUE TO MONITOR.
--- NOTE | 2018-08-11 03:45 | NUR ---
FLEXI SEAL RE INSERTION PT HAS PULLED OUT FLEXI SEAL. NO BLEEDING OR TRAUMA TO RECTAL AREA. NEW FLEXI SEAL INSERTED. PT TOLERATED WELL. INCONTINENCE CARE COMPLETED.
--- NOTE | 2018-08-11 04:05 | NUR ---
ATIVAN ATIVAN ADMINISTERED PER ORDERS. PT RESTLESS. RESTRAINTS IN PLACE. WILL CONTINUE TO MONITOR.
[2018-08-11] MEDS: METOPROLOL TARTRATE 50 MG TABLET GT SCH ×3 (05:11→21:21)
[2018-08-11] MEDS: PIPERACILLIN/TAZO 3.375/DEX-IS 50 ML IV SCH ×4 (05:11→23:13)
--- NOTE | 2018-08-11 05:11 | NUR ---
MEDICATION ADMINISTRATION ADMINISTERED MEDICATION PER ORDERS. BS OF 193, COVERAGE GIVEN PER SLIDING SCALE. PT REMAINS RESTLESS IN BED. WILL CONTINUE TO MONITOR.
[2018-08-11] MEDS: INSULIN REGULAR, HUMAN 100 UNITS/ML, 10 ML VIAL (novoLIN R) SUBCUT PRN ×3 (05:14→17:20)
--- NOTE | 2018-08-11 06:30 | NUR ---
CLOSING NOTE WILL ENDORSE CARE AND REPORT TO DAY SHIFT. PT CURRENTLY RESTING IN BED. NO S/S OF DISTRESS OR DISCOMFORT. IV INTACT AND RUNNING IVF PER ORDERS. TUBE FEEDING RUNNING PER ORDERS. GALARZA CATHETER DRAINING URINE VIA GRAVITY. FLEXI SEAL IN PLACE DRAINING LOOSE STOOL. PT RESTLESS AND PULLING AT LINES THROUGHOUT SHIFT. FLEXI SEAL CHANGED TWICE. PT IN STABLE CONDITION. ALL NEEDS MET THROUGHOUT SHIFT. WILL CONTINUE TO MONITOR.
[2018-08-11] MEDS: LevALBUTEROL HCL 1.25 MG/0.5 ML *CONC.* VIAL.NEB (XOPENEX CONC.) INH SCH ×3 (07:30→23:48)
[2018-08-11] MEDS: IPRATROPIUM BROM 0.5 MG/2.5 ML VIAL.NEB (ATROVENT) INH SCH ×3 (07:30→23:48)
--- NOTE | 2018-08-11 07:30 | NUR ---
Opening Note: Patient resting in bed, receiving breathing treatment. Breathing is even and unlabored with no distress noted. No signs of pain or discomfort. IV patent and intact running NS @ 10 ml/hr. Bilateral wrist restraints in place, no signs of circulation problems, palpable radial pulses. Harley catheter patent and intact draining to gravity, urine output visible. Flexiseal intact, visible stool output. LUZ therapy initiated. G-tube patent and intact with Vital AF running @ 75 ml/hr. Aspiration precautions in place. Safety precautions in place; bed in lowest position, wheels locked, bed alarm activated and call light within reach. Will continue to monitor.
[2018-08-11 08:02] VITALS: BP_SYST 128
[2018-08-11 08:10] VITALS: BP_SYST 128
[2018-08-11] MEDS: TERAZOSIN HCL 1 MG CAPSULE (HYTRIN) GT SCH (09:05)
[2018-08-11] MEDS: PANTOPRAZOLE SODIUM 40 MG TAB GT SCH (09:05)
[2018-08-11] MEDS: ASPIRIN 81 MG TABLET(ECOTRIN) GT SCH (09:06)
[2018-08-11] MEDS: LACTOBACILLUS RHAMNOSUS GG 1 CAP CAPSULE GT SCH ×2 (09:06→21:18)
[2018-08-11] MEDS: APIXABAN 2.5 MG TABLET GT SCH ×2 (09:09→21:25)
[2018-08-11] MEDS: MESALAMINE 250 MG CAPSULE.SA GT SCH ×2 (09:09→21:22)
[2018-08-11] MEDS: SOTALOL (AF) 80 MG TABLET GT SCH (09:10)
[2018-08-11] MEDS: HYDROCORTISONE SOD SUCC 100 MG/2 ML VIAL IVP SCH (09:10)
--- NOTE | 2018-08-11 10:06 | NUR ---
Rounds: Patient laying in bed resting. Repositioned. No distress noted. Will continue to monitor.
[2018-08-11 11:03] VITALS: BP_SYST 105; BP_SYST 97
--- NOTE | 2018-08-11 11:54 | NUR ---
Accucheck: Blood sugar 172, covered with 2 units Novolin R per sliding scale.
--- NOTE | 2018-08-11 12:00 | NUR ---
Rounds: Patient laying in bed resting. Repositioned for comfort. No pain or discomfort noted. IV fluids running per MD order, no signs of infiltration. No SOB or respiratory distress noted. Morning medications tolerated well. Safety precautions in place and call light within reach. Aspiration precautions in place. Will continue to monitor
--- NOTE | 2018-08-11 14:00 | NUR ---
Rounds: Patient laying in bed resting. Repositioned. No distress noted. Will continue to monitor.
[2018-08-11 16:00] VITALS: BP_SYST 118
--- NOTE | 2018-08-11 16:38 | NUR ---
DCP. FAMILY MEETING AT 3:20 PM AT THE [facility]. MET WITH YONIS,, DTR ANILMARYLIN DAVILA, AND SON MARÍA. EXPLAINED HOSPICE PROGRAM. EVERYONE AGREED FOR HOSPICE CARE. PATIENT IS AGITATED, ON RESTRAINTS, IV ABX ZOSYN , GALARZA CATH CARE, RECTAL TUBE D/T COLITIS. 02 AT 3 LPM. G TUBE DEPENDENT. PLAN FOR HOME WITH HOSPICE. PROVIDED INFORMATION FOR [facility], BUT DECLINED. PT'S WISHES TO BE AT HOME. ASKED FAMILY IF THEY HAVE A PREFERRED HOSPICE PROVIDED , MARÍA, SON OF PATIENT'S FRIEND RECOMMENDING. [facility]. SPOKE WITH PRAKASH CELESTE, MANAGER DIALYSIS OF HOSPICE / . [facility] T [phone] FAX [phone]. FAXED CLINICAL TO [facility]. WILL CONTINUE TO FF BERTHA CARREON RN/CM T [phone]
--- NOTE | 2018-08-11 17:22 | NUR ---
Accucheck: Blood Sugar 154, covered with 2 units Novolin R per sliding scale.
--- NOTE | 2018-08-11 18:39 | NUR ---
Closing Note: Patient resting with eyes closed, and daughter at bedside. No signs of pain or discomfort. Breathing is even and unlabored with no distress noted. IV patent and intact running NS @ 10 ml/hr per MD orders. Bilateral wrist restraints in place, no signs of circulation problems, palpable radial pulses. Harley catheter patent and intact draining to gravity, urine output visible. Flexiseal intact, visible stool output, no leakage. G-tube patent and intact with Vital AF running @ 75 ml/hr, patient tolerating feeding. LUZ therapy running. Aspiration precautions in place, head of bed in semi-fowlers. Safety precautions in place; bed in lowest position, wheels locked, bed alarm activated and call light within reach. All needs met. Will endorse plan of care to NOC, nurse.
--- NOTE | 2018-08-11 19:15 | NUR ---
OPENING NOTES RECEIVED PATIENT RESTING IN BED EYES CLOSED. BREATHING UNLABORED ON 02 3L NC. NO EVIDENEC OF PAIN NOTED AT THIS TIME. GTF VITAL AF @ 75 ML/HR IN FUSING ORDERED. FLEXISEAL INTACT. AFIB ON TELE MONITOR. FAMILY AT BEDSIDE.
[2018-08-11 20:08] VITALS: BP_SYST 119
[2018-08-11] MEDS: traZODone HCL 50 MG TABLET (DESYREL) GT SCH (21:18)
[2018-08-11] MEDS: ATORVASTATIN 20 MG TABLET GT SCH (21:19)
--- NOTE | 2018-08-11 21:30 | NUR ---
MED PASS DUE MEDICATIONS GIVEN. GT FEEDING TOLERATED NO RESIDUAL OBTAINED. HOB ELEVATED 30 DEGREES. BILATERAL SOFT WRIST RESTRAINTS IN PLACED FOR PATIENT SAFETY ORDERED.
--- NOTE | 2018-08-11 23:15 | NUR ---
ATB DUE ANTIBIOTIC INFUSED ORDERED. IV LINE INTACT. FINGERSTICK SUGAR 126. NO COVERAGE NEEDED PER SLIDING SCALE.
[2018-08-12] VITALS (7 sets, daily range): BP systolic 100–130
--- NOTE | 2018-08-12 01:44 | NUR ---
ROUNDS PATIENT RESTING IN BED. ASLEEP ON AND OFF. NO DISTRESS NOTED. HOB UP 30 DEGREES. BED ALARM ON. CALL LIGHT WITHIN REACH. SIDE RAILS UP X3. GT AND IV LINE INTACT.
[2018-08-12] MEDS: NACL 0.9% 250 ML IV SCH (03:43)
--- NOTE | 2018-08-12 04:16 | NUR ---
GT SITE CARE GT SITE CARE DONE. DRESSING CHANGED. NEW IV LINE TO LEFT FOREARM INSERTED G#22 WITH GOOD BLOOD RETURN. REMOVED OLD IV LINE TO RT HAND. PRESSURE DRESSING APPLIED.
[2018-08-12] MEDS: METOPROLOL TARTRATE 50 MG TABLET GT SCH ×3 (05:03→22:37)
[2018-08-12] MEDS: PIPERACILLIN/TAZO 3.375/DEX-IS 50 ML IV SCH ×3 (05:07→18:15)
[2018-08-12] MEDS: INSULIN REGULAR, HUMAN 100 UNITS/ML, 10 ML VIAL (novoLIN R) SUBCUT PRN ×3 (05:27→18:33)
--- NOTE | 2018-08-12 06:39 | NUR ---
CLOSING NOTES PATIENT ASLEEP ON AND OFF THROUGHOUT THE NIGHT. REMAINS PULLING LINES AND TUBINGS WHEN AWAKE. IRAM SOFT WRIST RESTRAINTS CONTINUED ORDERED. SKIN AND CIRCULATION UNDER RESTRAINTS WITHIN NORMAL LIMITS /INTACT. INCREASED PATIENT OBSERVATION/VISUAL CHECK OBSERVED. NEEDS ATTENDED. GT FEEDING TOLERATED. BED IN LOWEST LOCKED POSITION WITH BED ALARM ON. SIDERAILS UP X3. CALL LIGHT WITHIN EASY REACH.
[2018-08-12] MEDS: LevALBUTEROL HCL 1.25 MG/0.5 ML *CONC.* VIAL.NEB (XOPENEX CONC.) INH SCH ×2 (07:18→16:32)
[2018-08-12] MEDS: IPRATROPIUM BROM 0.5 MG/2.5 ML VIAL.NEB (ATROVENT) INH SCH ×2 (07:18→16:31)
--- NOTE | 2018-08-12 08:00 | NUR ---
initial notes rec patient awake but with slurred speech. with o2 at 2 to 3 liters via nasal cannula. resp easy and unlabored. noted with sob on exertion when awake. hob slightly elevated. ivf infusing well and feng well. gt feeding in progress and feng well and no residual noted. will continue to monitor patient.
--- NOTE | 2018-08-12 08:12 | NUR ---
DCP. FAMILY MEETING WITH [facility] ON 08/13/2018 AT 2 PM. WILL CONTINUE TO FF. BERTHA CARREON RN/CM
--- NOTE | 2018-08-12 10:00 | NUR ---
rounds family came and son stated will have a family conference with the hospice nurse in a,m. sleeps at intervals and gets resless when awake , turned repositioned for comfort.
[2018-08-12] MEDS: PANTOPRAZOLE SODIUM 40 MG TAB GT SCH (10:10)
[2018-08-12] MEDS: APIXABAN 2.5 MG TABLET GT SCH ×2 (10:12→20:31)
[2018-08-12] MEDS: ASPIRIN 81 MG TABLET(ECOTRIN) GT SCH (10:12)
[2018-08-12] MEDS: LACTOBACILLUS RHAMNOSUS GG 1 CAP CAPSULE GT SCH ×2 (10:12→20:27)
[2018-08-12] MEDS: SOTALOL (AF) 80 MG TABLET GT SCH (10:13)
[2018-08-12] MEDS: TERAZOSIN HCL 1 MG CAPSULE (HYTRIN) GT SCH (10:13)
[2018-08-12] MEDS: MESALAMINE 250 MG CAPSULE.SA GT SCH ×3 (10:14→20:29)
--- NOTE | 2018-08-12 12:30 | NUR ---
rounds another family member at bedside arrived. no sob noted no hypo hyperglycemic reaction noted.
--- NOTE | 2018-08-12 14:00 | NUR ---
rounds resting at this time. sleeps at intervals. no acute distress noted. family at bedside.
--- NOTE | 2018-08-12 15:36 | NUR ---
Nutrition F/U Admitting Diagnosis Aspiration pneumonia Reviewed Pertinent Medical/Surgical Hx Medical Record Patient Primary RN Medical History Comment: PMH: recent CVA, atr fibr, CABG, s/p PEG per nursing notes Pt also found w/ septic shock per MD notes 08/09/18 MD notes: sepsis, aspiration pneumonia, recent CVA, atr fibr, severe malnutrition 08/12/18 MD Progress Notes: Encephalopathy Subjective Information Pt seen resting in bed, +nasal cannula, IV infusing and TF infusing at goal rate at time of RD visit. RN reported that pt continues to tolerate TF well, w/ no residual this morning. Pt has a flexiseal w/ a lot of liquid output today. Per EMR TF Intakes: 500 ml 08/11/18. I/O: 1050/1100 (-50ml), IV total intake: 200ml per 12 hours. Per MD notes, family wants hospice. Current TF regimen remains adequate/appropriate. Current Diet Order/Nutrition Support Vital AF 1.2 at 75 ml/hr (goal rate), Free Water Flush: 150 ML Q6HR via GT x8 days Patient/Significant Other Unable To Verbalize Education Provided Not Indicated Pertinent Medications SSI, imodium, culturelle, piperacillin/tazobactam, protonix, eliquis Pertinent Labs BG 202 H, POC BG 186 H, BUN 22 H , CRE 1.32 H, VIT B12 1305 H Height (Feet) 5 feet Height (Inches) 11.00 inches Weight (Pounds) 176 pounds (08/03/18) Weight (Calculated Kilograms) 79.561532 kilograms Patient Weight 79.832 kg Body Mass Index 24.54 kg/m2 BEDSCALE WT: 183 lb (08/09/18) %IBW 103 Brandon/Adjusted Body Weight IBW: 172 lb, 78 kg Recent Weight Change Unable to verify Weight Status Appropriate Difficulty With: Chewing Swallowing Food Allergies Unable to verify Usual Diet At Home TF per nursing notes -- unable to locate in hard chart Skin Integrity Comment: Gonzalo scale: 13; per [employer] note 08/06/18: 1. Right cheek: stage 2 PU. 2. Left cheek: Blanchable erythema. Skin appears to be very fragile, and breaks easily. Per nursing notes, pt also has some discoloration to R toe and dry scab to R elbow. NEW Estimated Energy Expenditure (kcals/day) 0662-8098 kcal/day (30-35 kcal/kg CBW for sepsis, acute state) Estimated Protein Required (g/day) 120-160 gm/day (1.5-2 gm/kg CBW for sepsis) Estimated Fluid Required (l/day) 2 L/day (25 ml/kg/day CBW for geriatric maintenance) Problem/Etiology/Signs/Symptoms Inadequate nutritional intakes related to metabolic demands as evidenced by NPO status and inability to meet optimal nutritional requirements. *improving w/ current EN support Expected Outcomes/Goals - Monitor EN tolerance and intakes w/ goal of pt meeting at least 50% of estimated nutritional needs, labs trending WNL, normal GI function, and skin integrity/wt maintenance Dietitian Recommendations * Recommend continuing Vital AF 1.2 at 75 ml/hr (goal rate), Free Water Flush: 150 ML Q6HR via GT Provides: 2160 kcal/day, 135 gm protein/day, and 2060 ml free water/day Meets: 90% of estimated caloric needs and 113% of lower end of estimated protein needs Follow Up High Risk: F/U in 2-3 days
--- NOTE | 2018-08-12 15:42 | NUR ---
Dietitian Recommendations * Recommend continuing Vital AF 1.2 at 75 ml/hr (goal rate), Free Water Flush: 150 ML Q6HR via GT Provides: 2160 kcal/day, 135 gm protein/day, and 2060 ml free water/day Meets: 90% of estimated caloric needs and 113% of lower end of estimated protein needs Please see Nutrition F/U note for details. USP, RD
--- NOTE | 2018-08-12 16:00 | NUR ---
rounds wakes up at intervals and gets confused. at bedside with the patient. no acute distress noted.
--- NOTE | 2018-08-12 17:04 | NUR ---
WOUND RE-EVALUATION: Late note for 1703 secondary to patient care. Patient received in a Hudson Bed with an Isoflex LUZ mattress with low air loss therapy. Patient was awake, alert, non-responsive to verbal commands. Patient is unable to turn in bed independently. Gonzalo Score is a 13. Intrinsic factors that delay wound healing: Respiratory failure, severe hypoalbuminemia, CABG, CVA. Extrinsic factors that delay wound healing: Immobility. Wound Assessment: 1. Right cheek: Stage II pressure ulcer. Wound bed has 80% pink tissue, 20% black scab. No odor, no drainage. Periwound intact. Recommend: Cleanse wound with normal saline. Put sure prep onto periwound. Apply hydrogel onto wound bed. Cover with small foam dressing cut to size. Cover with transparent dressing. Perform site care daily, and as needed for dressing soiling or dislodgment until black scab is gone. 2. Left cheek: Blanchable light pink erythema. Skin appears to be very fragile, and can break easily. Recommend: No dressing needed. Continue to monitor site. 3. Perineal area: Erythema from IAD. Recommend: Cleanse involved area with mild soap and water. Pat dry. Apply antifungal powder to involved area. Perform site care twice a day, and as needed for soiling. Also recommend continue: Reposition patient every 2 hours with pillow support, and off-load pressure areas with pillows for pressure re-distribution. Offload, elevate and float bilateral heels with pillows. Perform skin care and monitor skin integrity Q shift. Use moisture barrier cream on buttocks and other moisture susceptible areas QID and as needed for soiling. Maintain patient on a low air-loss mattress.
--- NOTE | 2018-08-12 18:43 | NUR ---
closing notes asleep at this time. turned repositioned at intervals. cleaned with leaking stool and z guard applied on the scrotal area that is reddened. no hypo hyperglycemic reaction noted. bed in low position and side rails up and locked. pt is close to the nurses station.
--- NOTE | 2018-08-12 19:30 | NUR ---
OPENING NOTES RECEIVED PATIENT IN BED AWAKE/CONFUSED. BREATHING UNLABORED ON 3L NC. BILATERAL SOFT WRIST RESTRAINTS IN PLACED FOR PATIENT SAFETY. PATIENT PULLING OUT LINES/TUBINGS AND DOES NOT FOLLOW COMMANDS. SON AT BED SIDE. PATIENT REPOSITIONED TO LEFT SIDE. BED ALARM ON. CALL LIGHT WITHIN REACH. SIDE RAILS UP X3. BED IN LOWEST LOCKED POSITION.
[2018-08-12] MEDS: traZODone HCL 50 MG TABLET (DESYREL) GT SCH (20:27)
[2018-08-12] MEDS: ATORVASTATIN 20 MG TABLET GT SCH (20:28)
--- NOTE | 2018-08-12 20:35 | NUR ---
MED PASS DUE MEDICATIONS GIVEN AND TOLERATED. GT FEEDING NO RESIDUAL OBTAINED. HOB 30 DEGREES.
[2018-08-13] MEDS: LevALBUTEROL HCL 1.25 MG/0.5 ML *CONC.* VIAL.NEB (XOPENEX CONC.) INH SCH ×4 (00:13→23:17)
[2018-08-13] MEDS: IPRATROPIUM BROM 0.5 MG/2.5 ML VIAL.NEB (ATROVENT) INH SCH ×4 (00:14→23:17)
[2018-08-13] MEDS: PIPERACILLIN/TAZO 3.375/DEX-IS 50 ML IV SCH ×4 (00:20→17:07)
--- NOTE | 2018-08-13 00:21 | NUR ---
ATB DUE ANTIBIOTIC INFUSED. IV LINE INTACT. VITAL SIGNS STABLE.
--- NOTE | 2018-08-13 00:54 | NUR ---
INCONTINENCE CARE INCONTINENCE CARE DONE. LINENS AND PADS CHANGED.
--- NOTE | 2018-08-13 03:06 | NUR ---
ROUNDS PATIENT RESTING IN BED. BREATHING UNLABORED ON 02 3LNC. NO EVIDENCE OF PAIN NOTED. CALL LIGHT WITHIN REACH. SIDERAILS UP X3. BED ALARM ON.
[2018-08-13 05:05] VITALS: BP_SYST 109
[2018-08-13] MEDS: NACL 0.9% 250 ML IV SCH (05:07)
[2018-08-13] MEDS: METOPROLOL TARTRATE 50 MG TABLET GT SCH ×3 (05:18→21:35)
[2018-08-13] MEDS: INSULIN REGULAR, HUMAN 100 UNITS/ML, 10 ML VIAL (novoLIN R) SUBCUT PRN ×2 (05:21→18:04)
--- NOTE | 2018-08-13 05:24 | NUR ---
MED ,PASS DUE MEDICATIONS GIVEN. GT FEEDING NO RESIDUAL OBTAINED. GT DRESSING CHANGED. INCONTINENCE CARE DONE. PADS CHANGED.
[2018-08-13] MEDS: LORazepam 2 MG/ML VIAL IVP PRN ×2 (06:36→21:26)
--- NOTE | 2018-08-13 06:38 | NUR ---
AGITATION/ANXIOUS PATIENT MEDICATED WITH ATIVAN ORDERED. PATIENT RESTLESS SLIDING HIS BODY DOWN THE BED. LEGS OUTSIDE THE RAILS. REMOVING OXYGEN CANNULA.
--- NOTE | 2018-08-13 06:53 | NUR ---
CLOSING NOTES PATIENT RESTING IN BED. BREATHING UNLABORED. BILATERAL WRIST RESTRAINTS CONTINUED ORDERED. SKIN AND CIRCULATION UNDER RESTRAINTS WITHIN NORMAL LIMITS/INTACT. NEEDS ATTENDED. BED IN LOWEST LOCKED POSITION. CALL LIGHT WITHIN REACH. BED ALARM ON.
--- NOTE | 2018-08-13 07:24 | NUR ---
PATIENT OPENS EYES, TRACKS OCCASIONALLY. ON 3 LITERS, SATTING AT 94%. A-FIB/ AFLUTTER ON MONITOR, HR AT 100S. ON BILAT WRIST RESTRAINTS. RADIAL PULSES ARE STRONG, CAPILLARY REFILL < 3 SECONDS. WHEEZES AND RHONCHI ARE AUDIBLE OVER THE UPPER LUNG GORDON, DIMINISHES ON THE BASES. ON GT, RUNNING AT VITAL AF AT 75ML/HR. BOWELS ARE ARE PRESENT OVER ALL QUADRANTS. PEDAL PULSES PALPABLE ON BOTH FEET, LEFT STRONGER THAN THE RIGHT. HAS FLEXISEAL, DRAINING BROWN LIQUID STOOL. F/C IS IN PLACE. CALL LIGHT IN PLACE, BED LOCKED AT THE LOWEST POSITION, WILL CONTINUE TO MONITOR.
[2018-08-13 08:00] VITALS: BP_SYST 109
[2018-08-13] MEDS: ASPIRIN 81 MG TABLET(ECOTRIN) GT SCH (08:20)
[2018-08-13] MEDS: APIXABAN 2.5 MG TABLET GT SCH ×2 (08:21→21:32)
[2018-08-13] MEDS: LACTOBACILLUS RHAMNOSUS GG 1 CAP CAPSULE GT SCH ×2 (08:21→21:29)
[2018-08-13] MEDS: SOTALOL (AF) 80 MG TABLET GT SCH (08:22)
[2018-08-13] MEDS: PANTOPRAZOLE SODIUM 40 MG TAB GT SCH (08:23)
[2018-08-13] MEDS: MESALAMINE 250 MG CAPSULE.SA GT SCH ×2 (08:23→21:34)
[2018-08-13] MEDS: TERAZOSIN HCL 1 MG CAPSULE (HYTRIN) GT SCH (08:35)
--- NOTE | 2018-08-13 08:43 | NUR ---
DCP. HOSPICE EVALUATION WITH [facility] AT 2 PM. SPOKE WITH NANCY HOSPICE NURSE FROM [facility]. PROVIDED CLINICAL INFORMATION. BERTHA CARREON RN/CM T [phone]
--- NOTE | 2018-08-13 10:31 | NUR ---
PATIENT IS TURNED AND REPOSITIONED FOR COMFORT.
--- NOTE | 2018-08-13 12:00 | NUR ---
BLOOD SUGAR 104. NO COVERAGE IS NEEDED AT THIS TIME.
[2018-08-13 12:02] VITALS: BP_SYST 125
--- NOTE | 2018-08-13 13:45 | NUR ---
Bobby, the RN from [facility], is speaking with the family.
[2018-08-13 16:02] VITALS: BP_SYST 116
--- NOTE | 2018-08-13 16:02 | NUR ---
Social Service Note: SENIOR GROUP MANAGER received call from pt's dtr; SENIOR GROUP MANAGER met with pt's dtr in [facility] in [facility]. Pt's dtr is upset that pt's family was not offered other options besides hospice care. Pt's dtr states that they met with hospice today and pt is not ready for hospice. Pt's dtr states that the family was unaware of several issues with the pt and want to speak to the physician. Pt's dtr states thatSW asked pt's nurse to have physician paged so that the family can speak with pt's dtr and son. Pt's dtr states that she has spoke with Krystyna from HCP to see if pt can go to a LTAC facility. SENIOR GROUP MANAGER allowed pt's family to voice their concerns. SENIOR GROUP MANAGER offered to make referral the performance improvement department if pt's family wanted to file a grievance regarding physician; pt's family declined at this time, they would like to speak to physician first. SENIOR GROUP MANAGER will remain available for support and will follow up as needed.
--- NOTE | 2018-08-13 17:33 | NUR ---
DCP. SPOKE WITH DTR ANIL DAVILA, SHE TOLD ME, PER [facility], PT. DOES NOT MEET CRITERIA. REQUESTED LTAC. MARÍA, SON, TOLDHE WAS NOT AWARE OF THE SEPTIC SHOCK, I TOLD HIM THAT I WILL HAVE DR MAYNARD SPEAK WITH HIM. I SPOKE WITH DR MAYNARD, I REQUESTED HIM TO SPEAK WITH SON AND ALSO TO GIVE ORDERS FOR LTAC [facility]. I SPOKE ALBERTO EGAN LTAC NURSE TODAY. [facility] FAX CLINCIAL TO FAX [phone]. SHOE IRONER FOR LTAC NURSE IS JUANITA T [phone].COVERING FOR 08/14/2018. CALLED DTR AND LEFT A MESSAGE FOR LT[facility] AND [facility] [id number] [address] T [phone]. SHOE IRONER FOR HCP [employer] [employer] T [phone] BERTHA CARREON RN/CM
--- NOTE | 2018-08-13 18:18 | NUR ---
Patient's blood sugar 177. 2 units RI is given.
[2018-08-13 19:00] VITALS: BP_SYST 119
--- NOTE | 2018-08-13 19:00 | NUR ---
change of shift.pt.presents [id number];pt.affect;restless/agitated.p.presents g-tube;feed:vital:1.2 infusion rate;75ml/hr.pt.repositioned.respiratory status;pt.receiving o2 therapy via nasal cannulae;@3l/min:w/ humidified air.pt.presents narayanan catheter.pt.presents rectal tube.call light/telephone placed w/in the pt's reach.
[2018-08-13 20:00] VITALS: BP_SYST 119
--- NOTE | 2018-08-13 20:00 | NUR ---
pt.assessed.v/s assessed;values w/in normal limits.pt.presents affect;restless/agitated.i have applied the o2 nasal cannulae. pt.repositioned.i have assessed the narayanan catheter;patent;urine content presents.i have assessed the rectal tube;patent;intact; fecal liquid present.call light/telephone placed w/in the pt's reach.i have tuned the tv to [employer] programming station.
--- NOTE | 2018-08-13 21:00 | NUR ---
2100p medications administered via g-tube.g-tube patent;flushed w/out obstruction.g-tube residual check;5ml residual.
[2018-08-13] MEDS: traZODone HCL 50 MG TABLET (DESYREL) GT SCH (21:30)
--- NOTE | 2018-08-13 21:30 | NUR ---
pt.presents affect;restless/agitated.loc;confused.i have administered ativan:0.5mg ivp.
[2018-08-13] MEDS: ATORVASTATIN 20 MG TABLET GT SCH (21:33)
--- NOTE | 2018-08-13 22:15 | NUR ---
pt.assessed.pt.cleaned.pt.repositioned.g-tube assessed;patent;g-tube feed infusing.narayanan catheter assessed;patent: urine content present.rectal tube assessed;patent;intact;fecal material present;liquid.iv fluids infusing.call light/ telephone placed w/in the pt's reach.
[2018-08-14] VITALS (7 sets, daily range): BP systolic 98–121
[2018-08-14] MEDS: PIPERACILLIN/TAZO 3.375/DEX-IS 50 ML IV SCH ×2 (00:06→05:47)
--- NOTE | 2018-08-14 00:15 | NUR ---
pt.assessed.v/s assessed;values w/in normal limits.pt.cleaned.i have assessed the blood glucose;value;172mg/dl. i have administered 2 units;regular insulin.general status stable.respiratory status stable:o2-sat%=96%.pt. repositioned.call light/telephone placed w/in the pt's reach.
[2018-08-14] MEDS: INSULIN REGULAR, HUMAN 100 UNITS/ML, 10 ML VIAL (novoLIN R) SUBCUT PRN (00:18)
--- NOTE | 2018-08-14 02:00 | NUR ---
pt.assessed.pt.assessed for cleanliness.pt.repositioned.affect;restless,loc;confused.g-tube assessed;patent g-tube feed;infusing. narayanan catheter assessed;patent;urine content present.rectal tube assessed;patent;intact;fecal material;liquid presents. respiratory pattern/character dyspnea.call light/telephone placed
--- NOTE | 2018-08-14 04:15 | NUR ---
pt.assessed.pt.cleaned.i have cleaned the g-tube insertion site applied clean g-tube dsg.i have re established iv acces; rt.hand;#24g.i have assessed the narayanan catheter:patent;urine content present.i have applied new narayanan catheter tube strap: rt.thigh.i have assessed the rectal tube;patent;fecal material;liquid present.respiratory status assessed;pt.suctioned.call light/telephone placed w/in the pt's reach.
[2018-08-14] MEDS: METOPROLOL TARTRATE 50 MG TABLET GT SCH ×2 (05:49→14:42)
--- NOTE | 2018-08-14 06:15 | NUR ---
pt.assessed.pt.cleaned.pt.repositioned.i have assessed the narayanan catheter;patent;urine content present.i have assessed the rectal tube:patent,intact;fecal material;liquid present.iv fluids infusing.g-tube assessed.patent.i intended to change the g-tube feed;feed not available.pt.suction;oral.call light/telephone placed w/in the pt's reach.
[2018-08-14] MEDS: IPRATROPIUM BROM 0.5 MG/2.5 ML VIAL.NEB (ATROVENT) INH SCH ×2 (07:15→15:49)
[2018-08-14] MEDS: LevALBUTEROL HCL 1.25 MG/0.5 ML *CONC.* VIAL.NEB (XOPENEX CONC.) INH SCH ×2 (07:15→15:49)
--- NOTE | 2018-08-14 07:45 | NUR ---
PATIENT APPEARS RESTED, RESPONSIVE TO STIMULATION. HAS BILAT WRISTS RESTRAINTS. 3-LITER O2, SATTING 100%. HAS F/C, AND FLEXISEAL. F/C DRAINS YELLOW URINE, AND FLEXISEAL IS DRAINING BROWN STOOL. IV ON RIGHT FA, #22, SL. ON SCDS. A-FIB/A-FLUTTER ON MONITOR, AT 90S-100S/MIN. CALL LIGHT IN PLACE, BED LOCKED AT THE LOWEST POSITION, WILL CONTINUE MONITOR.
[2018-08-14] MEDS: ASPIRIN 81 MG TABLET(ECOTRIN) GT SCH (08:08)
[2018-08-14] MEDS: LACTOBACILLUS RHAMNOSUS GG 1 CAP CAPSULE GT SCH (08:08)
[2018-08-14] MEDS: APIXABAN 2.5 MG TABLET GT SCH (08:09)
[2018-08-14] MEDS: PANTOPRAZOLE SODIUM 40 MG TAB GT SCH (08:10)
[2018-08-14] MEDS: SOTALOL (AF) 80 MG TABLET GT SCH (08:11)
[2018-08-14] MEDS: TERAZOSIN HCL 1 MG CAPSULE (HYTRIN) GT SCH (08:11)
[2018-08-14] MEDS: MESALAMINE 250 MG CAPSULE.SA GT SCH (08:12)
--- NOTE | 2018-08-14 08:48 | NUR ---
patient is turned and repositioned for comfort. oral care provided.
--- NOTE | 2018-08-14 10:48 | NUR ---
HCP CM DC Planning Spoke with Nory GODOY at [facility] [phone], faxed all clinicals for review, awaiting approval and bed assignment. [facility] [phone] on will call. Pauline Padron HCP Nuclear Medicine Technologist
--- NOTE | 2018-08-14 11:37 | NUR ---
HCP JAYNE CHEN Planning Spoke with Nory GODOY at [facility] at [phone], patient has been accepted, awaiting bed assignment. Nurse to give report to [facility] , Auth# [id number]. [facility] on will call. Nurse to call ambulance for sisal picker time when patient is ready, Auth# [id number]. Pauline Padron HCP Infection Control Manager
--- NOTE | 2018-08-14 12:00 | NUR ---
Patient's blood sugar 125. No coverage needed.
--- NOTE | 2018-08-14 12:46 | NUR ---
HCP JAYNE DC Planning [facility] - Room 311B is available after 4:00pm. Tracy Sanchez. [place], [place] (Nurse to call for report.) Daughter Karen [phone] is aware and is agreeable to transfer. [facility] has been cancelled. [facility] will picker operator the patient at 4:00pm Pauline Padron HCP Industrial Engineering Professor
--- NOTE | 2018-08-14 14:20 | NUR ---
Patient is resting. Turned and repositioned for comfort.
--- NOTE | 2018-08-14 14:30 | NUR ---
BP 97/58. A-fib at 80-90s/ min. Metoprolol held.
--- NOTE | 2018-08-14 16:40 | NUR ---
PT TRANSFERRED Report given to Sally at [facility]. Transfer packet with Transfer Orders and Medication Reconciliation form given to EMT with report. Exitcare provided. [facility] ID band removed, replaced with ID band with pt's name and . All belongings sent with patient. Patient left floor via gurney escorted by EMT in no distress.
[2018-08-14] MEDS ORDERED: PIPERACILLIN/TAZO 3.375/DEX-IS 50 ML IV SCH (18:00)
== END 2018-08-14 16:30 | DRG 871 ==
LOC: SED 16:44 → SIC 18:31 → STU 08-10 13:37
PROVIDERS: ADMIT Internal Medicine Hospice and Palliative Medicine; ATTEND Internal Medicine Hospice and Palliative Medicine
PROC: 0BH17EZ Insertion of Endotracheal Airway into Trachea, Via Natural or Artificial Opening (ICD-10-PCS; principal; 2018-08-02)
PROC: 5A1945Z Respiratory Ventilation, 24-96 Consecutive Hours (ICD-10-PCS; 2018-08-02)
DX: A41.9 Sepsis, unspecified organism (principal); R65.21 Severe sepsis with septic shock; J69.0 Pneumonitis due to inhalation of food and vomit; J96.00 Acute respiratory failure, unspecified whether with hypoxia or hypercapnia; E43 Unspecified severe protein-calorie malnutrition; G93.40 Encephalopathy, unspecified; K51.90 Ulcerative colitis, unspecified, without complications; R47.01 Aphasia; I69.351 Hemiplegia and hemiparesis following cerebral infarction affecting right dominant side; R62.7 Adult failure to thrive; E78.5 Hyperlipidemia, unspecified; E11.9 Type 2 diabetes mellitus without complications; E87.6 Hypokalemia; I25.10 Atherosclerotic heart disease of native coronary artery without angina pectoris; I48.2 Chronic atrial fibrillation; K21.9 Gastro-esophageal reflux disease without esophagitis; N40.0 Benign prostatic hyperplasia without lower urinary tract symptoms; R13.10 Dysphagia, unspecified; F03.90 Unspecified dementia, unspecified severity, without behavioral disturbance, psychotic disturbance, mood disturbance, and anxiety; I11.0 Hypertensive heart disease with heart failure; I50.9 Heart failure, unspecified; Z87.891 Personal history of nicotine dependence; I25.2 Old myocardial infarction; Z93.1 Gastrostomy status; Z95.1 Presence of aortocoronary bypass graft; Z68.24 Body mass index [BMI] 24.0-24.9, adult; Z88.8 Allergy status to other drugs, medicaments and biological substances; Z79.899 Other long term (current) drug therapy; Z79.82 Long term (current) use of aspirin; Z79.01 Long term (current) use of anticoagulants
CPT/HCPCS: 36415; 36600; 70450-TC; 71045; 80048; 80053; 81000-TC; 82140-TC; 82550-TC; 82607; 82803-TC; 82962; 83605; 83735-TC; 83880; 84439; 84443-TC; 84484; 85025; 85610-TC; 85730-TC; 86592; 87040-TC; 87070-TC; 87081; 87086; 87205-TC; 87230-TC; 90656; 93005; 93306; 94002; 94003; 94640; 94760; 96365; 96375; 97110-GP; 97530-GP; 99291; A6209; J1720; J1815; J1956; J2060; J2270; J2543; J3370; J3480; J3490; J7040; J7042; J7050; J7060; J7612; J7613

== ENCOUNTER 2022-02-16 13:24 | Emergency (ER) | payer BC, OTHER ==
[~2022-02-16] VITALS: Ht 175.3 cm; Wt 77.1 kg
[~2022-02-16 13:24] MED LIST changes: -ASPI-1153 GT; +ASPI-1393 GT; -MELA3TAB PO; +MELA3TAB41 PO
[2022-02-16 13:26] VITALS: BP_SYST 201
--- NOTE | 2022-02-16 13:30 | NUR ---
Patient to ER bed 3 to gown for evaluation. Side rails up. Report given to NORMA FRANCISCO.
--- NOTE | 2022-02-16 13:32 | NUR ---
AMIE Schmidt at bedside examining patient.
--- NOTE | 2022-02-16 13:35 | NUR ---
PT BIBA FROM HOME, PER FAMILY 2 HOURS PRIOR TO ARRIVAL PT STARTED TO HAVE SLURRED SPEECH. PT HAS HX OF CVA WITH LEFT SIDED DEFICITS/WEAKNESS. UPON ARRIVAL PT HAS CLEAR SPEECH, AOX1-2 PT HAS HX OF DEMENTIA. PER EMS ON SCENE PT WAS IN RESPIRATORY DISTRESS 02 SAT IN THE 80S, ON ARRIVAL PT IS ON 4LNC 02 SAT 94-96%. PT DENIES PAIN
[2022-02-16 14:22] LABS: EOSINOPHILS # (AUTO) 0.1 K/uL (0.0-0.4); MONOCYTES # (AUTO) 0.3 K/uL (0.0-1.0); RED CELL DISTRIBUTION WIDTH 14.8 % (9.0-15.0)
[2022-02-16 14:24] LABS: ANION GAP 3 (5-15); CALCIUM 9.7 mg/dL (8.4-11.0); CHLORIDE 105 mmol/L (98-107); CREATININE 1.56 mg/dL (0.55-1.30); GLUCOSE 142 mg/dL (70-99); POTASSIUM 5.3 mmol/L (3.5-5.1); SODIUM SERUM 136 mmol/L (136-145); UREA NITROGEN, BLOOD 26 mg/dL (8-21)
[2022-02-16 14:26] LABS: BASOPHILS % (AUTO) 0.3 % (0.0-2.0); EOSINOPHILS % (AUTO) 0.9 % (0.0-4.0); HEMATOCRIT 47.8 % (36-54); HEMOGLOBIN 15.8 g/dL (14.0-18.0); LYMPHOCYTES # (AUTO) 1.4 K/uL (1.0-5.5); LYMPHOCYTES % (AUTO) 18.4 % (20.5-51.5); MEAN CORPUSCULAR HEMOGLOBIN 28 pg (27-31); MEAN CORPUSCULAR HGB CONC 33 % (32-36); MEAN CORPUSCULAR VOLUME 86 fL (79.0-98.0); MONOCYTES % (AUTO) 4.3 % (1.7-9.3); NEUTROPHILS # (AUTO) 5.8 K/uL (1.8-7.7); NEUTROPHILS % (AUTO) 76.1 % (40.0-70.0); PLATELET COUNT (AUTO) 150 K/uL (130-430); RED BLOOD CELL COUNT(AUTO) 5.58 MIL/uL (4.2-6.2); WHITE BLOOD COUNT (AUTO) 7.7 K/uL (4.8-10.8)
[2022-02-16 14:28] LABS: INR 1.1 (0.80-1.20)
[2022-02-16 14:33] LABS: ALANINE AMINOTRANSFERASE 26 U/L (12-78); ALBUMIN 3.5 g/dL (3.4-4.8); ASPARTATE AMINOTRANSFERASE 32 U/L (10-37); TOTAL BILIRUBIN 0.3 mg/dL (0.0-1.0)
--- NOTE | 2022-02-16 15:00 | NUR ---
PT PLACED ON BEDPAN, MEDIUM WATERY BM, PT CLEANED, LINENS AND GOWN CHANGED.
--- NOTE | 2022-02-16 15:30 | NUR ---
PT'S FAMILY AT THE BEDSIDE WITH DR. 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 THEY WOULD LIKE TO TAKE HIM HOME. PT TITRATED FROM SAT STABLE AT 95-97% PT AWAKE, ALERT ORIENTED TO BASELINE. VSS, DENIES PAIN.
[2022-02-16 15:33] LABS: BILIRUBIN,URINE NEGATIVE (NEGATIVE); BLOOD, URINE 1+ (NEGATIVE); CLARITY/URINE CLEAR (CLEAR); COLOR,URINE YELLOW (YELLOW); GLUCOSE,URINE NEGATIVE (NEGATIVE); KETONES,URINE NEGATIVE (NEGATIVE); LEUKOCYTE ESTERASE ,URINE NEGATIVE (NEGATIVE); NITRITE, URINE NEGATIVE (NEGATIVE); PROTEIN URINE 2+ (NEGATIVE); UROBILINOGEN,URINE 0.2 (0.2-1.0)
[2022-02-16 15:46] LABS: BARBITURATE, URINE NEGATIVE (NEG <=200); BENZODIAZEPINE, URINE NEGATIVE (NEG <=150); CANNABINOID, URINE NEGATIVE (NEG <=50); COCAINE, URINE NEGATIVE (NEG <=150); METHAMPHETAMINES SCREEN,URINE NEGATIVE (NEG <=500); OPIATE, URINE NEGATIVE (NEG <=100); PHENCYCLIDINE SCREEN,URINE NEGATIVE (NEG <=25); UR TRICYCLIC ANTIDEPRESSANTS NEGATIVE (NEG <=300); URINE AMPHETAMINE NEGATIVE (NEG <=500); URINE METHADONE NEGATIVE (NEG <=200); URINE OXYCODONE SCREEN NEGATIVE (NEG <=100); URINE PROPOXYPHENE SCREEN NEGATIVE (NEG <=300)
[2022-02-16 15:52] LABS: BACTERIA,URINE None Seen /HPF (None Seen); RBC,URINE 0-3 /HPF (0-3); WBC,URINE NONE SEEN /HPF (0-3)
[2022-02-16 15:53] LABS: MUCUS,URINE None Seen /LPF (None Seen)
[2022-02-16 16:26] VITALS: BP_SYST 183
== END 2022-02-16 16:26 | disposition home or self-care (01) ==
LOC: SED 13:24
DX: G45.9 Transient cerebral ischemic attack, unspecified (principal); I10 Essential (primary) hypertension; K21.9 Gastro-esophageal reflux disease without esophagitis; Z88.8 Allergy status to other drugs, medicaments and biological substances; Z79.82 Long term (current) use of aspirin; Z79.899 Other long term (current) drug therapy
CPT/HCPCS: 36415; 70450-TC; 71045; 76376; 80048; 80053; 80307; 81000; 83880; 84484; 85025; 85379; 85610-TC; 85730-TC; 86886; 86900; 86901; 93005; 99285